=== PATIENT | male | born 1970 | race Caucasian/White ===

== ENCOUNTER 2019-06-23 14:19 | Outpatient (CLI) | payer BC, SELFPAY ==
[2019-06-23 14:37] LABS: Basophils Percent Auto 0.4 % (0.2-1.2); Eosinophils Absolute Auto 0.1 K/mm3 (0-0.3); Hematocrit 47.2 % (42.0-52.0); Hemoglobin 16.2 g/dL (14.0-18.0); Immature Granulocyte Absolute 0.02 K/mm3 (0.00-0.031); Immature Granulocyte Percent A 0.3 % (0-0.5); Lymphocytes Absolute Auto 1.86 K/mm3 (0.9-3.2); Lymphocytes Percent Auto 27.1 % (18.3-44.2); Mean Corpuscular HGB Conc 34.3 g/dl (32-36); Mean Corpuscular Hemoglobin 30.7 pg (26-34); Mean Corpuscular Volume 89.6 fl (80-100); Mean Platelet Volume 9.6 fl (7.4-10.4); Monocytes Absolute Auto 0.5 K/mm3 (0.1-0.6); Monocytes Percent Auto 7.1 % (2.6-8.5); Neutrophils Absolute Auto 4.3 K/mm3 (1.3-6.7); Neutrophils Percent Auto 63.1 % (45.5-73.1); Platelet Count Result 313 k/mm3 (150-375); Red Blood Count 5.27 M/mm3 (4.6-6.20); Red Cell Distribution Width 12.9 % (11.5-14.5); White Blood Count 6.9 K/mm3 (4.5-10.0)
[2019-06-23 15:01] LABS: Hemoglobin A1C 5.3 % (<5.7)
[2019-06-23 15:06] LABS: Alanine Aminotransferase 42 U/L (4-50); Albumin Level 4.8 g/dL (3.5-5.1); Alkaline Phosphatase 80 U/L (38-126); Aspartate Amino Transferase 36 U/L (17-59); Bilirubin,Total 0.5 mg/dL (0.2-1.3); Blood Urea Nitrogen 14 mg/dL (9-20); Calcium 9.3 mg/dL (8.4-10.2); Carbon Dioxide 26 mmol/L (22-30); Chloride 103 mmol/L (98-107); Cholesterol 172 mg/dL (0-200); Estimated Glomerular Filt Rate > 60; Glucose 87 mg/dL (75-110); HDL Direct 42 mg/dL; Potassium 4.7 mmol/L (3.4-5.0); Sodium 138 mmol/L (137-145); Triglycerides 132 mg/dL (<150)
[2019-06-23 15:21] LABS: LDL Cholesterol Direct 97 mg/dL
[2019-06-23 15:42] LABS: Prostate Specific Antigen 1.5 ng/mL (< OR = 4.0)
== END 2019-06-23 14:20 | disposition home or self-care (01) ==
PROVIDERS: PCP Internal Medicine; Visit Provider Internal Medicine
DX: R69 Illness, unspecified (principal); Z12.5 Encounter for screening for malignant neoplasm of prostate
CPT/HCPCS: 36415; 80053; 80061; 82306; 83036; 84153; 84443; 85025; G0103

== ENCOUNTER 2020-03-31 09:12 | Emergency (ER) | payer BC, SELFPAY ==
--- NOTE | ~2020-03-31 | CT_ITS ---
EXAMINATION: CT brain wo con INDICATION: Head injury COMPARISON: None TECHNIQUE: Standard unenhanced head CT. The dose-length product (DLP) was 681.00 mGy-cm. The mA was a djusted according to patient size. Iterative reconstruction technique was employed. FINDINGS: There is left periorbital soft tissue swelling and laceration. There is no intracranial hem orrhage, acute infarction, or abnormal mass lesion. The ventricles are normal. There is no abnormal m ass effect or midline shift. The swain-white matter differentiation is normal. The basal cisterns are patent. The orbits are normal. The paranasal sinuses, mastoids and calvarium are normal. IMPRESSION: 1. Left periorbital soft tissue swelling and laceration without acute intracranial abnormality. Reviewed, dictated and finalized at location A. [employer] IMPRESSION: 1. Left periorbital soft tissue swelling and laceration without acute intracran ial abnormality.
--- NOTE | ~2020-03-31 | CT_ITS ---
EXAMINATION: CT cervical spine wo con EXAM DATE: 03/31/2020 10:26 INDICATION: Fall, head injury. TECHNIQUE: Spiral CT of the cervical spine was performed without contrast. Axial images were reviewe d. Coronal and sagittal reformatted images were also reviewed. The dose-length product (DLP) for thi s examination was 517.92 mGy-cm. The exposure was tailored according to patient size (auto mA exposu re control), and iterative reconstruction (ASIR) was used as additional dose reduction technique. ere is no prior study for comparison. FINDINGS: There is no evidence of acute cervical fracture. The odontoid process is intact. Pre-den s space is normal. Prevertebral soft tissue is normal. There are no soft tissue abnormalities ident ified. There is no disc space widening or traumatic vertebral body subluxation suspected. Vertebral body and disc heights are well-maintained. Mild cervical spondylosis. A detailed level by level eval uation of spondylosis can be added as addendum if requested. IMPRESSION: 1. No acute cervical fracture. Reviewed, dictated and finalized at location B. [employer] SUPERVISOR
[2020-03-31 09:27] VITALS: BP 125/76; PULSE 103; RESP 14; TEMP 35.9; O2SAT 99
[2020-03-31] MEDS: TETANUS,DIPHTHERIA,AC PERTUSSIS ADULT (0.5 ML) BOOSTRIX IM (09:55)
--- NOTE | 2020-03-31 09:55 | ED.HEATRA ---
HPI - Head Injury General Chief complaint: Head Injury Stated complaint: fall, head injury Time Seen by Provider: 03/31/20 09:35 Source: patient Mode of arrival: ambulatory Limitations: no limitations History of Present Illness HPI Narrative: 49 years old white male presents with left forehead laceration occurred approximately at 11 PM last night. Patient was under the influence of alcohol, does not know how it happened. Patient denying other injuries. Patient denies any fever, chills, nausea, vomiting, neck pain, back pain, chest pain or abdominal pain. Last tetanus shot over 10 years ago Related Data Home Medications Medication Instructions Recorded Confirmed paroxetine HCl 20 mg tablet tablet PO 06/23/19 06/23/19 Allergies Allergy/AdvReac Type Severity Reaction Status Date / Time No Known Allergies Allergy Verified 06/23/19 13:59 Review of Systems Review of Systems: Narrative: CONSTITUTIONAL: Denies fever, chills, or sweats. EYES: Denies visual changes, redness, or discharge. ENT: Denies rhinorrhea, congestion, sore throat, or otalgia. CARDIOVASCULAR: Denies chest pain, palpitations, or edema. RESPIRATORY: Denies cough or dyspnea. GASTROINTESTINAL: Denies abdominal pain, nausea, vomiting, or diarrhea. GENITOURINARY: Denies dysuria or hematuria. SKIN: Denies rash or itching. MUSCULOSKELETAL: Denies back pain, joint pain, or myalgia. NEUROLOGIC: Denies headache, numbness, or weakness. PSYCHIATRIC: Denies anxiety or depression. [facility] Past Medical History Medical History Anxiety Family History Family History Mother Family history of obesity Family history of osteoarthritis Family history of coronary artery disease Grandparent Family history of malignant neoplasm Carcinoma of colon Father Malignant neoplasm of prostate Social History Social History Smoking status: Never smoker Alcohol intake: current Exam Narrative: Exam Narrative: General appearance: Well-developed, well-nourished Skin: Normal color, left forehead showing 6 cm deep laceration 1 cm gapping, dried blood all over the place. Head: Left forehead contusion and laceration Eyes: Clear conjunctiva ENT: Oropharynx normal, ears normal, nose normal Neck: Supple, nontender Chest and respiratory: Airway patent, no respiratory distress, no accessory muscle use Heart: Regular rate/rhythm Abdomen: Soft, nontender, no organomegaly, quiet bowel sounds Musculoskeletal: Normal range of motion, nontender back Neurologic: Alert and oriented ?3, CARDI[employer] REHAB NURSE is normal as tested, no gross motor deficit Course Course Emergency Course: Stable Reevaluation(s) Reevaluation #1: Dr. Cunha Came to the emergency room and manageD the laceration. Date: 03/31/20 Time: 11:30 Vital Signs Vital signs: Vital Signs Temperature 35.9 C L 03/31/20 09:27 Pulse Rate 103 H 03/31/20 09:27 Respiratory Rate 14 03/31/20 09:27 Blood Pressure 125/76 03/31/20 09:27 Pulse Oximetry 99 03/31/20 09:27 Temperature 35.9 C L 03/31/20 09:27 Pulse Rate 103 H 03/31/20 09:27 Respiratory Rate 14 03/31/20 09:27 Blood Pressure 125/76 03/31/20 09:27 Pulse Oximetry 99 03/31/20 09:27 MDM - Head Injury MDM Narrative Medical decision making narrative: Patient presents with closed head injury and forehead laceration, was under the influence of alcohol. Patient came to the emergency room 11-1/2-hour later CT head, CT cervical spine, a tetanus shot ordered. Further plan to follow Dr. Cunha consult ordered. Differential Diagnos
[2020-03-31] MEDS: ONDANSETRON HCL ODT 4 MG TABLET PO (11:40)
[2020-03-31 11:55] VITALS: BP 119/80; PULSE 100; RESP 12; O2SAT 99
[2020-03-31 12:45] VITALS: BP 144/87; PULSE 82; RESP 18; O2SAT 99
--- NOTE | 2020-03-31 20:06 | PM.PROC ---
Procedure Note - Detailed Date of procedure: 03/31/20 Pre-op diagnosis: fall, head injury Post-op diagnosis: same Procedure performed: 6 cm complex repair of left forehead laceration. Description of procedure: I met this patient in the ER after being called to address a laceration to his left forehead. This gentleman had sustained this injury in a fall at least 12 hours before. He apparently was intoxicated and fell at home striking his head and did not know he was bleeding until he found blood on his pillow. He has no known allergies to medication and is on just a few medications including alprazolam azithromycin paroxetine and rosuvastatin. He has never been a smoker. He requested that the forehead be repaired. I informed him that he may have some numbness from this injury later but he said he had none this time. He has some bruising around his left orbit. The laceration runs through the eyebrow running vertically towards the left side of his forehead. The site was infiltrated with 1% lidocaine with epinephrine. All dried blood was cleared with antiseptic solution. The site was carefully examined and washed with the same antiseptic solution. The configuration of the margins of this wound was evaluated. The skin edges to width of approximately 2 mm were sharply trimmed all the way around using a 15 blade. There was bevelling in different areas which had sustained differing forces in this trauma, fatty layers and muscle. Appropriate layers were reapproximated with 5 0 Vicryl the skin was reapproximated in the dermis with 5 0 Vicryl. The skin was then closed with a 5 0 running nylon. I did not see any obvious neurovascular structures. The patient is discharged with instructions in wound care and follow-up oral antibiotics and some pain medicine Surgeon: Brennan Cunha MD
== END 2020-03-31 12:47 | disposition home or self-care (01) ==
PROVIDERS: Emergency Provider Emergency Medicine; PCP Internal Medicine
DX: S01.81XA Laceration without foreign body of other part of head, initial encounter (principal); Z23 Encounter for immunization; F41.9 Anxiety disorder, unspecified; W19.XXXA Unspecified fall, initial encounter
CPT/HCPCS: 13132; 70450; 72125; 90471; 90715; 99284; A9270; J2405

== ENCOUNTER 2021-07-05 00:11 | Day surgery (SDC) | payer BC, SELFPAY ==
[2021-06-24 12:52] VITALS: BMI 34.9
--- NOTE | 2021-07-05 10:54 | WPDANESEPPF ---
Anes - Initial Pre Proc Eval Procedure: Operation Date: 07/05/21 13:00 Proposed Procedures p Esophagogastroduodenoscopy & Colonoscopy - Mitesh Cheung MD Date/Time: 07/05/21 10:54 Surgeon: Mitesh Cheung MD Pre Op Diagnosis: GERD, epigastric pain, neoplasm screening Patient Data Age: 51 Gender: M Height: 1.78 m Weight: 110.5 kg Allergies Allergy/AdvReac Type Severity Reaction Status Date / Time No Known Allergies Allergy Verified 07/05/21 11:09 Home Medications Medication Instructions Recorded Confirmed Type rosuvastatin 40 mg tablet See Rx Instructions .ROUTE 04/08/21 06/24/21 Rx .COMPLEX #90 tablet paroxetine HCl 20 mg tablet See Rx Instructions .ROUTE 05/10/21 06/24/21 Rx .COMPLEX #180 tablet Quercetin BYMOUTH 06/09/21 06/13/21 History alprazolam 0.25 mg tablet 0.25 mg PO TID PRN #90 tablet 06/09/21 06/24/21 Rx ascorbic acid (vitamin C) 1,000 mg 1 g PO DAILY 06/09/21 06/24/21 History tablet cholecalciferol (vitamin D3) 50 50 mcg PO DAILY 06/09/21 06/24/21 History mcg (2,000 unit) capsule pantoprazole 40 mg tablet,delayed 40 mg PO DAILY #90 tablet 06/09/21 06/24/21 Rx release zinc 50 mg tablet 50 mg PO DAILY 06/09/21 06/24/21 History aspirin 81 mg PO DAILY 06/24/21 06/24/21 History coQ10 (ubiquinol) 100 mg PO DAILY 06/24/21 06/24/21 History Patient hx anesthesia problems: none Family hx anesthesia problems: none Results Review: All pre-operative results and documents have been reviewed as part of the pre-operative evaluation. [facility] Past Medical History Medical History (Updated 07/04/21 @ 14:39 by Russell Morrison DO) Anxiety Anxiety with depression BMI 35.0-35.9,adult Colon cancer screening Encounter for routine adult health examination without abnormal findings Epigastric pain FHx: prostate cancer Gastroesophageal reflux disease without esophagitis Impaired glucose tolerance Pneumonia of right middle lobe due to infectious organism Prostate cancer screening Stress at work Vitamin D deficiency Family History Family History Mother Family history of obesity Family history of osteoarthritis Family history of coronary artery disease Grandparent Family history of malignant neoplasm Carcinoma of colon Father Malignant neoplasm of prostate Social History Social History Smoking status: Never smoker Alcohol intake: current Drinks per week: 12 Substance use: never Substance use type: does not use Living arrangements: alone Spiritual care concerns: No Anes - Eval Final PreProcedure Day of Procedure 07/05/21 10:54 Patient weight: obese Heart: regular rate and rhythm Lungs: clear to auscultation and normal air movement Airway: Mallampati scale class II Neurological: alert and oriented Last oral intake: >/= 8 hours ASA classification: III Emergent: no Anesthetic plan: proceed Anesthesia type and monitoring: general GIVS and standard monitoring Results Review: All pre-operative results and documents have been reviewed as part of the pre-operative evaluation. Informed Consent: The patient's anesthetic plan and its attendant risks and benefits were discussed with the patient/family/POA. Questions were solicited and answers provided to the satisfaction of the patient/family/POA.
[2021-07-05 11:10] VITALS: BP 117/76; PULSE 86; RESP 18; TEMP 36.4; O2SAT 99
--- NOTE | 2021-07-05 11:19 | WPDGICN ---
Assessment and Plan Assessment and plan (1) Epigastric pain: Code(s): R10.13 - Epigastric pain Status: Acute Assessment and Plan: Patient with epigastric pain that may represent acid reflux or dyspepsia. The history is difficult to pinpoint. Agree with trial of pantoprazole 40mg p.o. daily. An EGD will be performed to evaluate this pain which has been present for several years. Anti-reflux measures in a bland diet are also encouraged. (2) Colon cancer screening: Code(s): Z12.11 - Encounter for screening for malignant neoplasm of colon Status: Acute Assessment and Plan: Neoplasia screening colonoscopy advised because of patient's age. Further recommendations will be given after colonoscopy. GI Consult Note Consult date/time: 07/05/21 11:19 HPI: Tino Morales is a 51 year old male Presents for both colonoscopy an EGD. Patient complains of several years of epigastric discomfort. He states that his sometimes a burning nature. Not always related to diet. Sometimes while sitting still. Her lying down at night. He is uncertain if it is related to eating. He has tried Tums and antacids with inconsistent response. He did try famotidine that seemed to help to a certain degree. Over last 1 week has been on a proton pump inhibitor with no specific change in symptoms. Patient presents for EGD today to assess this discomfort more thoroughly. Patient denies any dysphagia or weight loss. Patient additionally presents for screening colonoscopy. He reports that his current weight appetite bowel movements are normal. Family history is significant for a grandparent with colon cancer. He presents today for neoplasia screening. Review of Systems Review of Systems: All systems reviewed & are unremarkable except as noted in HPI and below [facility] Past Medical History Medical History (Updated 07/04/21 @ 14:39 by Russell Morrison, ) Anxiety Anxiety with depression BMI 35.0-35.9,adult Colon cancer screening Encounter for routine adult health examination without abnormal findings Epigastric pain FHx: prostate cancer Gastroesophageal reflux disease without esophagitis Impaired glucose tolerance Pneumonia of right middle lobe due to infectious organism Prostate cancer screening Stress at work Vitamin D deficiency Family History Family History Mother Family history of obesity Family history of osteoarthritis Family history of coronary artery disease Grandparent Family history of malignant neoplasm Carcinoma of colon Father Malignant neoplasm of prostate Social History Social History Smoking status: Never smoker Alcohol intake: current Drinks per week: 12 Substance use: never Substance use type: does not use Living arrangements: alone Spiritual care concerns: No Meds Home Medications and Allergies Home Medications Medication Instructions Recorded Confirmed Type rosuvastatin 40 mg tablet See Rx Instructions .ROUTE 04/08/21 06/24/21 Rx .COMPLEX #90 tablet paroxetine HCl 20 mg tablet See Rx Instructions .ROUTE 05/10/21 06/24/21 Rx .COMPLEX #180 tablet Quercetin BYMOUTH 06/09/21 06/13/21 History alprazolam 0.25 mg tablet 0.25 mg PO TID PRN #90 tablet 06/09/21 06/24/21 Rx ascorbic acid (vitamin C) 1,000 mg 1 g PO DAILY 06/09/21 06/24/21 History tablet cholecalciferol (vitamin D3) 50 50 mcg PO DAILY 06/09/21 06/24/21 History mcg (2,000 unit) capsule pantoprazole 40 mg tablet,delayed 40 mg PO DAILY #90 tablet 06/09/21 06/24/21 Rx release zinc 50 mg tablet 50 mg PO DAILY 06/09/21 06/24/21 History aspirin 81 mg PO DAILY 06/24/21 06/24/21 History coQ10 (ubiquinol) 100 mg PO DAILY 06/24/21 06/24/21 History Allergies Allergy/AdvReac Type Severity Reaction Status Date / Time No Known Allergies Allergy Verified 07/05/21 11:09
[2021-07-05] MEDS: LACTATED RINGERS 1,000 ML 150 ML IV CONT (11:24)
--- NOTE | 2021-07-05 11:40 | SUR.OPER ---
EGD ended at 1135. Colonoscopy started at 1140.
[2021-07-05] MEDS: SIMETHICONE ORAL SUSPENSION 20 MG/0.3 ML 30 ML BOTTLE 0.6 ML IRRIGATION (11:43)
[2021-07-05 11:56] VITALS: BP 142/91; PULSE 92; RESP 25; O2SAT 99
[2021-07-05 12:06] VITALS: BP 133/91; PULSE 93; RESP 22; O2SAT 99
[2021-07-05 12:16] VITALS: BP 135/86; PULSE 71; RESP 23; O2SAT 100
== END 2021-07-05 12:28 | disposition home or self-care (01) ==
PROVIDERS: PCP Internal Medicine; Visit Provider Internal Medicine Gastroenterology
PROC: 0DJ08ZZ Inspection of Upper Intestinal Tract, Via Natural or Artificial Opening Endoscopic (ICD-10-PCS; CPT 43235; principal; 2021-07-05 13:00)
DX: Q39.4 Esophageal web (principal); Z12.11 Encounter for screening for malignant neoplasm of colon; D17.5 Benign lipomatous neoplasm of intra-abdominal organs; K64.8 Other hemorrhoids; K57.30 Diverticulosis of large intestine without perforation or abscess without bleeding; K21.9 Gastro-esophageal reflux disease without esophagitis; E55.9 Vitamin D deficiency, unspecified; F41.8 Other specified anxiety disorders; E66.9 Obesity, unspecified; Z68.35 Body mass index [BMI] 35.0-35.9, adult
CPT/HCPCS: 43450; 43239; 45385; 87081; 88305; J2704; J7120

== ENCOUNTER 2023-01-16 01:06 | Day surgery (SDC) | payer BC, SELFPAY ==
[2023-01-11 14:04] VITALS: BMI 31.1
[2023-01-16 07:25] VITALS: BP 119/70; PULSE 74; RESP 16; TEMP 35.5; O2SAT 100; BMI 30.1
[2023-01-16] MEDS: LACTATED RINGERS 1,000 ML 150 ML IV CONT (07:47)
--- NOTE | 2023-01-16 08:24 | WPDANESEPPF ---
Anes - Initial Pre Proc Eval Procedure: Operation Date: 01/16/23 08:00 Proposed Procedures p Esophagogastroduodenoscopy - Mitesh Cheung MD Date/Time: 01/16/23 08:24 Surgeon: Mitesh Cheung MD Pre Op Diagnosis: esophageal obstruction, dysphagia , GERD Patient Data Age: 52 Gender: M Height: 1.78 m Weight: 95.3 kg Last Vital Signs Temp 95.9 F L 01/16/23 07:25 Pulse 74 01/16/23 07:25 Resp 16 01/16/23 07:25 BP 119/70 01/16/23 07:25 Pulse Ox 100 01/16/23 07:25 O2 Del Method Room Air 01/16/23 07:25 Allergies Allergy/AdvReac Type Severity Reaction Status Date / Time No Known Allergies Allergy Verified 01/16/23 07:35 Home Medications Medication Instructions Recorded Confirmed Type ascorbic acid (vitamin C) 1,000 mg 1 g PO DAILY 06/09/21 01/16/23 History tablet cholecalciferol (vitamin D3) 50 50 mcg PO DAILY 06/09/21 01/16/23 History mcg (2,000 unit) capsule zinc 50 mg tablet 50 mg PO DAILY 06/09/21 01/16/23 History aspirin 81 mg capsule 81 mg PO DAILY 06/24/21 01/16/23 History coQ10 (ubiquinol) 100 mg capsule 100 mg PO DAILY 06/24/21 01/16/23 History alprazolam 0.25 mg tablet 0.25 mg PO TID PRN anxiety #90 tabs 06/12/22 01/16/23 Rx vitamin B complex (B 1 tablet PO DAILY 07/13/22 01/16/23 History Complex-Vitamin B12 tablet) paroxetine HCl 20 mg tablet See Rx Instructions .Route 12/14/22 01/16/23 Rx .COMPLEX #180 tabs famotidine 40 mg tablet (Pepcid) 40 mg PO QHS #90 tabs 01/08/23 01/16/23 Rx rosuvastatin 40 mg tablet See Rx Instructions .Route 01/08/23 01/16/23 Rx .COMPLEX #90 tabs Patient hx anesthesia problems: none Family hx anesthesia problems: none Results Review: All pre-operative results and documents have been reviewed as part of the pre-operative evaluation. [facility] Past Medical History Medical History (Updated 01/08/23 @ 09:32 by Krystle Knight CMA) Anxiety Anxiety with depression Back pain BMI 31.0-31.9,adult BMI 34.0-34.9,adult BMI 35.0-35.9,adult Colon cancer screening Congestion of right ear Encounter for preventive health examination Encounter for routine adult health examination with abnormal findings Encounter for routine adult health examination without abnormal findings Epigastric pain Esophageal stricture FHx: prostate cancer Gastroesophageal reflux disease without esophagitis Impaired glucose tolerance Pneumonia of right middle lobe due to infectious organism Prostate cancer screening Stress at work Vitamin D deficiency Family History Family History Mother Family history of obesity Family history of osteoarthritis Family history of coronary artery disease Grandparent Family history of malignant neoplasm Carcinoma of colon Father Malignant neoplasm of prostate Social History Social History Smoking status: Never smoker Second hand tobacco smoke exposure: No Alcohol intake: current Drinks per week: 12 Substance use: never Substance use type: does not use Lack of Transportation: No Lack of Food: Never True Current Housing: I Have Housing Concerned About Future Housing: No Difficulty Paying Gas/Electric Bills: No Difficulty Paying for Meds: No Currently Unemployed: No Education: Master's Degree or Higher Difficulty w/ Childcare or Family Care: No Living arrangements: with family Occupation/Education: occupation Gender identity (if verbalized by the patient): Male Spiritual care concerns: No Anes - Eval Final PreProcedure Day of Procedure 01/16/23 08:24 Patient weight: obese Heart: regular rate and rhythm Lungs: clear to auscultation Airway: Mallampati scale class II Neurological: alert and oriented Last oral intake: >/= 8 hours ASA classification: II Emergent: no Anesthetic plan: proceed Anesthesia type and monitoring: general GIVS and standard monitoring
--- NOTE | 2023-01-16 08:29 | PM.HPGS ---
History of Present Illness History of Present Illness Consent: Risks, benefits, and alternatives have been discussed and questions answered. Patient agrees to proceed with procedure. Chief complaint: epigastric pain Narrative: Tino Morales is a 52 year old male Referred by Dr. Mccabe because of esophageal obstruction . Patient complains of epigastric discomfort. 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 Suggestion of esophagitis was identified at that time because of an irregular GE junction. Patient placed on pantoprazole. Patient currently takes [id number] Pepcid. He states this helps the discomfort partially. It never goes away. Discomfort is not related to diet nor position or activity. Patient denies any difficulty swallowing. He has no chest pain. He does infrequently notice regurgitation. Family history is noncontributory. Patient no longer is taking PPI acid suppression. Patient referred back for follow-up EGD. Review of Systems Review of Systems: Review of systems noncontributory. [facility] Past Medical History Medical History (Updated 01/08/23 @ 09:32 by Krystle Knight [facility]) Anxiety Anxiety with depression Back pain BMI 31.0-31.9,adult BMI 34.0-34.9,adult BMI 35.0-35.9,adult Colon cancer screening Congestion of right ear Encounter for preventive health examination Encounter for routine adult health examination with abnormal findings Encounter for routine adult health examination without abnormal findings Epigastric pain Esophageal stricture FHx: prostate cancer Gastroesophageal reflux disease without esophagitis Impaired glucose tolerance Pneumonia of right middle lobe due to infectious organism Prostate cancer screening Stress at work Vitamin D deficiency Family History Family History Mother Family history of obesity Family history of osteoarthritis Family history of coronary artery disease Grandparent Family history of malignant neoplasm Carcinoma of colon Father Malignant neoplasm of prostate Social History Social History Smoking status: Never smoker Second hand tobacco smoke exposure: No Alcohol intake: current Drinks per week: 12 Substance use: never Substance use type: does not use Lack of Transportation: No Lack of Food: Never True Current Housing: I Have Housing Concerned About Future Housing: No Difficulty Paying Gas/Electric Bills: No Difficulty Paying for Meds: No Currently Unemployed: No Education: Master's Degree or Higher Difficulty w/ Childcare or Family Care: No Living arrangements: with family Occupation/Education: occupation Gender identity (if verbalized by the patient): Male Spiritual care concerns: No Meds Home Medications and Allergies Home Medications Medication Instructions Recorded Confirmed Type ascorbic acid (vitamin C) 1,000 mg 1 g PO DAILY 06/09/21 01/16/23 History tablet cholecalciferol (vitamin D3) 50 50 mcg PO DAILY 06/09/21 01/16/23 History mcg (2,000 unit) capsule zinc 50 mg tablet 50 mg PO DAILY 06/09/21 01/16/23 History aspirin 81 mg capsule 81 mg PO DAILY 06/24/21 01/16/23 History coQ10 (ubiquinol) 100 mg capsule 100 mg PO DAILY 06/24/21 01/16/23 History alprazolam 0.25 mg tablet 0.25 mg PO TID PRN anxiety #90 tabs 06/12/22 01/16/23 Rx vitamin B complex (B 1 tablet PO DAILY 07/13/22 01/16/23 History Complex-Vitamin B12 tablet) paroxetine HCl 20 mg tablet See Rx Instructions .Route 12/14/22 01/16/23 Rx .COMPLEX #180 tabs famotidine 40 mg tablet (Pepcid) 40 mg PO QHS #90 tabs 01/08/23 01/16/23 Rx rosuvastatin 40 mg tablet See Rx Instructions .Route 01/08/23 01/16/23 Rx .COMPLEX #90 tabs Allergies Allergy/AdvReac Type Severity Reaction Status Date / Time No Known Allergies Allergy Verified 01/16/23 07:35
[2023-01-16] MEDS: BENZOCAINE (*SP) 60 ML SPRAY CAN (HURRICAINE) 1 SPRAY MUCOUS MEM (08:38)
[2023-01-16 08:48] VITALS: BP 96/70; PULSE 56; RESP 21; O2SAT 98
[2023-01-16 08:58] VITALS: BP 118/83; PULSE 55; RESP 23; O2SAT 99
[2023-01-16 09:08] VITALS: BP 117/82; PULSE 56; RESP 22; O2SAT 99
== END 2023-01-16 09:19 | disposition home or self-care (01) ==
PROVIDERS: PCP Internal Medicine; Visit Provider Internal Medicine Gastroenterology
PROC: 0DJ08ZZ Inspection of Upper Intestinal Tract, Via Natural or Artificial Opening Endoscopic (ICD-10-PCS; CPT 43235; principal; 2023-01-16 08:00)
DX: K21.00 Gastro-esophageal reflux disease with esophagitis, without bleeding (principal); F41.8 Other specified anxiety disorders; E55.9 Vitamin D deficiency, unspecified; E66.9 Obesity, unspecified; Z68.30 Body mass index [BMI] 30.0-30.9, adult; Z79.82 Long term (current) use of aspirin; Z80.0 Family history of malignant neoplasm of digestive organs; Z80.42 Family history of malignant neoplasm of prostate
CPT/HCPCS: 43239; 87081; J1165; J7120

== ENCOUNTER 2023-03-05 14:57 | Outpatient (CLI) | payer BC, SELFPAY ==
[2023-03-05 15:50] LABS: Cholesterol 132 mg/dL (0-200); HDL Direct 33 mg/dL; Triglycerides 112 mg/dL (<150)
[2023-03-05 16:01] LABS: LDL Cholesterol Direct 79 mg/dL
[2023-03-05 16:21] LABS: Prostate Specific Antigen 1.6 ng/mL (< OR = 4.0)
== END 2023-03-05 14:58 | disposition home or self-care (01) ==
LOC: ANHLAB 14:58
PROVIDERS: PCP Internal Medicine; Visit Provider Internal Medicine
DX: Z12.5 Encounter for screening for malignant neoplasm of prostate (principal); E78.5 Hyperlipidemia, unspecified
CPT/HCPCS: 36415; 80061; 84153; G0103

== ENCOUNTER 2024-06-13 15:14 | Observation (INO) | payer OTHER, SELFPAY ==
[2024-06-13] VITALS (22 sets, daily range): BP systolic 98–152; BP diastolic 49–83; PULSE 101–128; RESP 12–20; TEMP 37.1–39.4; O2SAT 95–100; BMI 28.7
--- NOTE | ~2024-06-13 | US_ITS ---
EXAM: ABDOMEN ULTRASOUND HISTORY: RUQ PAIN COMPARISON: Reference is made to a noncontrast enhanced CT examination of the abdomen and pelvis date d 06/13/2024 which was without right upper quadrant pathology. FINDINGS: LIVER: Abnormal focus of increased echogenicity within the right lobe of the liver, presumably segmen t 5, without a definitive finding on the noncontrast enhanced CT for which contrast enhanced MRI is r ecommended for further evaluation. This abnormality measures 12 x 12 x 14 mm, and is without internal vascularity. The remainder of the liver is unremarkable in echogenicity and size. GALLBLADDER: No stones are identified within the gallbladder, which is otherwise unremarkable. Trace gallbladder wall thickening likely artifactual, without pericholecystic fluid. BILE DUCTS: Common bile duct measures 3.5mm. PANCREAS: Limited evaluation of the pancreas secondary to overlying bowel gas IMPRESSION: Indeterminate focus within segment 5/6 of the liver, which may represent an atypical hemangioma (with lack of demonstrable vascularity), however, nonemergent follow-up with contrast-enhanced MRI of the liver (with liver mass protocol) is recommended to exclude a hyperechoic malignant lesion (such as mu cinous colorectal carcinoma, melanoma, carcinoid, or primarily hepatocellular carcinoma). Reviewed, dictated and finalized at location A. IMPRESSION: Indeterminate focus within segment 5/6 of the liver, which may represent an aty pical hemangioma (with lack of demonstrable vascularity), however, nonemergent follow-up with contrast-enhanced MRI of the liver (with liver mass protocol) is recommended to exclude a hyperechoic malignant lesion (such as mucinous colore ctal carcinoma, melanoma, carcinoid, or primarily hepatocellular carcinoma).
--- NOTE | ~2024-06-13 | CT_ITS ---
CT abdomen pelvis wo con Ordering provider: Larry Swan MD History: 54 years Male with . hematuria . Comparison: None. Technique: CT abdomen and pelvis without IV and without oral contrast. Automated exposure control and iterative reconstruction technique were employed. The dose-length product was 235.15 mGy-cm. Findings: VISUALIZED LOWER CHEST: Normal. UPPER ABDOMINAL ORGANS: Liver: Normal. Gallbladder: Normal. Spleen: Normal. Stomach/duodenum: Normal. Pancreas: Normal. Adrenals: Normal. Kidneys: Normal. PELVIC ORGANS: The bladder shows thickening wall suggestive of cystitis. Further evaluation advised. BOWEL AND MESENTERY: Colon: No evidence of diverticulitis.. Normal appendix. Small Bowel: Normal. No obstruction. Peritoneum/mesentery: No free air or free fluid. No mesenteric lymphadenopathy. RETROPERITONEUM: Normal aorta. No retroperitoneal lymphadenopathy. MUSCULOSKELETAL: Superficial soft tissues: The superficial soft tissues are normal. Bones: Normal spine. IMPRESSION: 1. Thickened wall of the urinary bladder. Cystitis is highly suggestive. Further evaluation advised. 2. No evidence of appendicitis, diverticulitis or intestinal obstruction. Reviewed, dictated and finalized at location A. IMPRESSION: 1. Thickened wall of the urinary bladder. Cystitis is highly suggestive. Furth er evaluation advised. 2. No evidence of appendicitis, diverticulitis or intestinal obstruction.
--- OUTSIDE RECORDS SUMMARY | 2024-06-13 15:17 | XMS_ITS | Referral Summary ---
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[employer] Telemedicine [facility] Virtual Care [address] [place] [phone] Adore Coppola NP Other hyperlipidemia (Primary Dx); Moderate episode of recurrent major depressive disorder (HCC) 03/16/2024 Patient Self-Triage [facility] HealthCare/ Physicians [facility] [place] [address] Mychart, Generic Provider from Last 3 Months Allergies No known active allergies Medications PARoxetine (PAXIL) 10 mg tablet Take 1 tablet (10 mg total) by mouth every morning 30 tablet 1 03/21/2024 Active rosuvastatin (CRESTOR) 10 mg tablet Take 1 tablet (10 mg total) by mouth daily 30 tablet 1 03/21/[address] (PROTONIX) 40 mg EC tablet Take 1 tablet (40 mg total) by mouth every morning 05/06/2024 Active ezetimibe (ZETIA) 10 mg tablet Take 1 tablet (10 mg total) by mouth daily 05/06/2024 Active Active Problems Problem Noted Date Diagnosed Date Recurrent major depression 03/21/2024 Assessment & Plan (03/21/2024 6:18 PM ASSEMBLER [employer]): Paxil refilled with 1 refill. Patient has a new patient appointment mid April. Other hyperlipidemia 03/21/2024 Assessment & Plan (03/21/2024 6:18 PM ASSEMBLER [employer]): Will refill crestor at this time. New patient appointment mid April. Social History Tobacco Use Types Packs/Day Years Used Date Smoking Tobacco: Never Assessed Sex and Gender Information Value Date Recorded Sex Assigned at Not on file Legal Sex Male 12:50 AM ASSEMBLER [employer] Gender Identity Male 03/16/2024 11:49 AM [employer]SEM[employer] Sexual Orientation Straight 03/16/2024 11 :49 AM ASSEMBLER [employer] Last Filed Vital Signs Vital Sign Reading Time Taken Comments Blood Pressure 104/73 06/13/2024 2:45 PM CDT Pulse 120 06/13/2024 2:45 PM CDT Temperature 37.4 C (99.3 F) 06/13/2024 2:45 PM CDT Respiratory Rate 26 06/13/2024 2:45 PM CDT Oxygen Saturation 99% 06/13/2024 2:45 PM CDT Inhaled Oxygen Concentration - - Weight 92.9 kg (204 lb 12.8 oz) 06/01/2023 5:58 PM CDT Height 177.8 cm (5' 10 ) 06/01/2023 5:58 PM CDT Body Mass Index 29.39 06/01/2023 5:58 PM CDT Plan of Treatment Not on file Procedures Procedure Name Priority Date/Time Associated Diagnosis Comments POCT RAPID STREP Routine 06/13/2024 2:56 PM CDT Sore throat POC INFLUENZA A/B, COVID-19 ANTIGEN Routine 06/13/2024 2:56 PM CDT Sore throat POCT URINALYSIS DIPSTICK Routine 06/13/2024 2:44 PM CDT Hematuria, unspecified type from Last 3 Months Results * POC Influenza A/B, COVID-19 antigen (06/13/2024 2:56 PM CDT) Influenza A Ag, POC Negative Negative [facility] Influenza B Ag, POC Negative Negative [facility] COVID-19 Ag POC Presumptive Negative Presumptive Negative, Invalid [facility] Nasal 06/13/2024 2:56 PM CDT Eri Phillips NP POINT OF CARE TEST ORDERABLES F inal Result [facility] [address] [place] [address] * POCT rapid strep A (06/13/2024 2:56 PM CDT) Rapid Strep A, POC Negative Negative Swab 06/13/2024 2:56 PM CDT Eri Phillips NP POINT OF CARE TEST ORDERABLES F inal Result * (ABNORMAL) POCT urinalysis dipstick (06/13/2024 2:44 PM CDT) Color, Urine, POC Red Clarity, ur, POC Cloudy(A) Clear Glucose, ur, POC Negative Negative MG/DL Bilirubin, ur, POC Moderate Negative, Small, Moderate, Large Ketones, ur, POC 15.(A) Negative Specific [place], POC 1.025 1.003 - 1.030 Blood, ur, POC Large(A) Negative pH, ur, POC 5.5 5.0 - 8.0 Protein, ur, POC 300.(A) Negative Urobilinogen, urine, POC 1.0 0.2 - 1.0 mg/dL Nitrite, ur, POC Positive(A) Negative Leukocytes, ur, POC Large(A) Negative Lot Number [id number] Urine 06/13/2024 2:44 PM CDT Aimee Olguin NP POINT OF CARE TEST ORDERAB LES Final Result from Last 3 Months Insurance [facility] [employer] [facility] HMO/PPO Address: [facility] [address] [place] [address] Care Teams Hydrochloric Area Supervisor Relationship Specialty Start Date End Date Unknown, Notinfile PCP - General 06/01/23
--- OUTSIDE RECORDS SUMMARY | 2024-06-13 15:17 | XMS_ITS | Encounter Summary ---
Author Organization [facility] Healthcare Address [address] [place] [address] Care Team Providers Care Commercial Credit Specialist Name Role Phone Unknown, Notinfile Primary Care Provider Unavail able Reason for Visit * Reason Comments Urinary Symptom Sore Throat Encounter Details Date Type Department Care Team (Late st Contact Info) Description 06/13/2024 3:00 PM CDT Office Visit [facility] Medical Group Convenient Care at [address] [phone] Eri Phillips, SEBASTIEN [address] [facility] [address] [place] [address] Hematuria, unspecified type (Primary Dx); Sore throat; Tachycardia; Lightheadedness; Urinary frequency Social History Tobacco Use Types Packs/Day Years Used Date Smoking Tobacco: Never Assessed Sex and Gender Information Value Date Recorded Sex Assigned at Not on file Legal Sex Male 12:50 AM ACCOUNTS PAYABLE OR RECEIVABLE CLERK Gender Identity Male 03/16/2024 11:49 AM ACCOUNTS PAYABLE OR RECEIVABLE CLERK Sexual Orientation Straight 03/16/2024 11 :49 AM ACCOUNTS PAYABLE OR RECEIVABLE CLERK documented as of this encounter Last Filed Vital Signs Vital Sign Reading Time Taken Comments Blood Pressure 104/73 06/13/2024 2:45 PM CDT Pulse 120 06/13/2024 2:45 PM CDT Temperature 37.4 C (99.3 F) 06/13/2024 2:45 PM CDT Respiratory Rate 26 06/13/2024 2:45 PM CDT Oxygen Saturation 99% 06/13/2024 2:45 PM CDT Inhaled Oxygen Concentration - - Weight - - Height - - Body Mass Index - - documented in this encounter Plan of Treatment Scheduled Orders Name Type Priority Associated Diagnoses Orde r Schedule Urine culture Urine, clean voided Microbiology Routine Hematuria, unspecified type Expected: 06/13/2024, Expires: 06/13/2025 documented as of this encounter Procedures Procedure Name Priority Date/Time Associated Diagnosis Comments POC INFLUENZA A/B, COVID-19 ANTIGEN Routine 06/13/2024 2:56 PM CDT Sore throat POCT RAPID STREP Routine 06/13/2024 2:56 PM CDT Sore throat POCT URINALYSIS DIPSTICK Routine 06/13/2024 2:44 PM CDT Hematuria, unspecified type documented in this encounter Results * POCT rapid strep A (06/13/2024 2:56 PM CDT) Rapid Strep A, POC Negative Negative Swab 06/13/2024 2:56 PM CDT Eri Phillips NP POINT OF CARE TEST ORDERABLES F inal Result * POC Influenza A/B, COVID-19 antigen (06/13/2024 2:56 PM CDT) Influenza A Ag, POC Negative Negative [facility] Influenza B Ag, POC Negative Negative [facility] COVID-19 Ag POC Presumptive Negative Presumptive Negative, Invalid [facility] Nasal 06/13/2024 2:56 PM CDT Eri Phillips NP POINT OF CARE TEST ORDERABLES F inal Result [facility] [address] [place] [address] * (ABNORMAL) POCT urinalysis dipstick (06/13/2024 2:44 PM CDT) Color, Urine, POC Red Clarity, ur, POC Cloudy(A) Clear Glucose, ur, POC Negative Negative MG/DL Bilirubin, ur, POC Moderate Negative, Small, Moderate, Large Ketones, ur, POC 15.(A) Negative Specific [place], POC 1.025 1.003 - 1.030 Blood, ur, POC Large(A) Negative pH, ur, POC 5.5 5.0 - 8.0 Protein, ur, POC 300.(A) Negative Urobilinogen, urine, POC 1.0 0.2 - 1.0 mg/dL Nitrite, ur, POC Positive(A) Negative Leukocytes, ur, POC Large(A) Negative Lot Number [id number] Urine 06/13/2024 2:44 PM CDT Aimee Olguin NP POINT OF CARE TEST ORDERAB LES Final Result documented in this encounter Visit Diagnoses Diagnosis Hematuria, unspecified type- Primary Sore throat Acute pharyngitis Tachycardia Unspecified tachycardia Lightheadedness Dizziness and giddiness Urinary frequency documented in this encounter Historical Medications * This list may reflect changes made after this encounter. ezetimibe (ZETIA) 10 mg tablet Take 1 tablet (10 mg total) by mouth daily 05/06/[address] (PROTONIX) 40 mg EC tablet Take 1 tablet (40 mg total) by mouth every morning 05/06/2024 added in this encounter Care Teams Commercial Credit Specialist Relationship Specialty Start Date End Date Unknown, Notinfile PCP - General 06/01/23 documented as of this encounter
--- OUTSIDE RECORDS SUMMARY | 2024-06-13 15:17 | XMS_ITS | Clinical Summary ---
Author Organization [facility] Address [facility] [place] [address] Care Team Providers Care Cps Team Lead Name Role Phone Micheal Mccabe MD Primary Care Provider [phone] Social History Tobacco Use Types Packs/Day Years Used Date Smoking Tobacco: Never Assessed Sex and Gender Information Value Date Recorded Sex Assigned at Not on file Legal Sex Male 5:10 PM CDT Gender Identity Not on file Sexual Orientation Not on file Plan of Treatment Health Maintenance Due Date Last Done Comments Colorectal Cancer Screening Colonoscopy (10 Years) 1968 Annual Physical 1971 Hepatitis C 1986 Hepatitis B Vaccines (1 of 3 - 19+ 3-dose series) 1987 Zoster Vaccines (1 of 2) 2018 COVID-19 Vaccine (3 - 2023-2 5 season) 2023 11/15/2020, 10/20/2020 Influenza Adult (#1) 2023 02/05/2022, 02/19/2018 DTaP, Tdap and Td Vaccines ( 2 - Td or Tdap) 03/31/2030 03/31/2020 Meningococcal B Vaccine Aged Out No l onger eligible based on patient's age to complete this topic Meningococcal Vaccine Aged Out No eliseo brandie eligible based on patient's age to complete this topic Pneumococcal Vaccine: Pediatrics (0 to 5 Years) and At-Risk Patients (6 to 64 Years) Aged Out No longer eligible b ased on patient's age to complete this topic RSV Immunizations Under 20 Months Aged Out No longer eligible b ased on patient's age to complete this topic Insurance [facility] Care Teams Cps Team Lead Relationship Specialty Start Date End Date Micheal Mccabe MD [address] - [facility] [address] [place] [id number] PCP - General INTERNAL MEDICINE 03/06/23
--- OUTSIDE RECORDS SUMMARY | 2024-06-13 15:17 | XMS_ITS | Clinical Summary ---
Author Organization [facility] [address] [place] Address [address] [place] [phone] Care Team Providers Care Division Controller Name Role Phone Unknown, Notinfile Primary Care Provider Unavail able Allergies No known active allergies Medications PARoxetine [...] 03/21/2024 Assessment & Plan (03/21/2024 6:18 PM CAREER DEVELOPMENT SPECIALIST): Paxil refilled with 1 refill. Patient has a new patient appointment mid April. Other hyperlipidemia 03/21/2024 Assessment & Plan (03/21/2024 6:18 PM CAREER DEVELOPMENT SPECIALIST): Will refill crestor at this time. New patient appointment mid April. Encounters Date Type Department Care Team Description 06/13/2024 3:00 PM CDT Office Visit [facility] Medical Group [facility] Care at [address] [phone] Eri Phillips NP Hematuria, unspecified type (Primary Dx); Sore throat; Tachycardia; Lightheadedness; Urinary frequency 03/21/2024 6:30 PM CAREER DEVELOPMENT SPECIALIST Telemedicine [facility] Medical Group Virtual Care [address] [place] [phone] Adore Coppola NP Other hyperlipidemia (Primary Dx); Moderate episode of recurrent major depressive disorder (HCC) 03/16/2024 Patient Self-Triage [facility] HealthCare/ Physicians [facility] [place] [address] Mychart, Generic Provider from Last 3 Months Social History Tobacco Use Types Packs/Day Years Used Date Smoking Tobacco: Never Assessed Sex and Gender Information Value Date Recorded Sex Assigned at Not on file Legal Sex Male 12:50 AM CAREER DEVELOPMENT SPECIALIST Gender Identity Male 03/16/2024 11:49 AM CAREER DEVELOPMENT SPECIALIST Sexual Orientation Straight 03/16/2024 11 :49 AM CAREER DEVELOPMENT SPECIALIST Obstetrics History Last Filed Vital Signs Vital Sign Reading [...] 06/01/2023 5:58 PM CDT Plan of Treatment Health Maintenance Due Date Last Done Comments Colon Cancer Screening-Colonoscopy 1968 Depression Screening 1968 Hepatitis C Screening 1968 Prostate Cancer Screening-PSA 1968 Hepatitis B Screening 1986 Regular Well Visit/Exam 18-64 1986 Zoster Vaccine (1 of 2) 2018 Covid-19 Vaccine (2023-2 5 season) 2023 11/15/2020, 10/20/2020 Influenza Vaccine (#1) 2023 2, 02/19/2018 DTaP/Tdap/Td Vaccine (2 - Td or Tdap) 03/31/2030 03/31/2020 Pneumococcal vaccine <65 Aged Out No longer eligible based on patient's age to complete this topic Procedures Procedure Name Priority Date/Time Associated Diagnosis Comments POCT RAPID STREP Routine 06/13/2024 2:56 PM CDT Sore throat POC INFLUENZA A/B, COVID-19 ANTIGEN Routine 06/13/2024 2:56 PM CDT Sore throat POCT URINALYSIS DIPSTICK Routine 06/13/2024 2:44 PM CDT Hematuria, unspecified type from Last 3 Months Results * POC Influenza A/B, COVID-19 antigen (06/13/2024 2:56 PM CDT) Influenza A Ag, POC Negative Negative [facility] Influenza B Ag, POC Negative Negative [facility] COVID-19 Ag POC Presumptive Negative Presumptive Negative, Invalid [facility] Nasal 06/13/2024 2:56 PM CDT Eri Phillips NP POINT OF CARE TEST ORDERABLES F inal Result [facility] [address] [place] [address] * POCT rapid strep A (06/13/2024 2:56 PM CDT) Rapid Strep A, POC Negative Negative Swab 06/13/2024 2:56 PM CDT Eri Phillips FINANCIAL MANAGEMENT ANALYST POINT OF CARE TEST ORDERABLES F inal Result * (ABNORMAL) POCT urinalysis dipstick (06/13/2024 2:44 PM CDT) Color, Urine, POC Red Clarity, ur, POC Cloudy(A) Clear Glucose, ur, POC Negative Negative MG/DL Bilirubin, ur, POC Moderate Negative, Small, Moderate, Large Ketones, ur, POC 15.(A) Negative Specific [place], POC 1.025 1.003 - 1.030 Blood, ur, POC Large(A) Negative pH, ur, POC 5.5 5.0 - 8.0 Protein, ur, POC 300.(A) Negative Urobilinogen, urine, POC 1.0 0.2 - 1.0 mg/dL Nitrite, ur, POC Positive(A) Negative Leukocytes, ur, POC Large(A) Negative Lot Number [id number] Urine 06/13/2024 2:44 PM CDT Aimee Olguin NP POINT OF CARE TEST ORDERAB LES Final Result from Last 3 Months Insurance [employer] Care Teams Division Controller Relationship Specialty Start Date End Date Unknown, Notinfile PCP - General 06/01/23
[2024-06-13 16:27] LABS: Basophils Percent Auto 0.2 % (0.2-1.2); Eosinophils Percent Auto 0.2 % (0-4.4); Hematocrit 44.1 % (42.0-52.0); Hemoglobin 15.4 g/dL (14.0-18.0); Immature Granulocyte Absolute 0.02 K/mm3 (0.00-0.031); Immature Granulocyte Percent A 0.2 % (0-0.5); Lymphocytes Absolute Auto 0.54 K/mm3 (0.9-3.2); Mean Corpuscular HGB Conc 34.9 g/dl (32-36); Mean Corpuscular Hemoglobin 30.7 pg (26-34); Mean Platelet Volume 9.2 fl (7.4-10.4); Monocytes Absolute Auto 0.7 K/mm3 (0.1-0.6); Monocytes Percent Auto 6.4 % (2.6-8.5); Neutrophils Absolute Auto 9.4 K/mm3 (1.3-6.7); Platelet Count Result 226 k/mm3 (150-375); Red Blood Count 5.01 M/mm3 (4.6-6.20); Red Cell Distribution Width 12.8 % (11.5-14.5); White Blood Count 10.7 K/mm3 (4.5-10.0)
[2024-06-13 16:41] LABS: Alanine Aminotransferase 42 U/L (6-50); Albumin Level 4.9 g/dL (3.5-5.1); Alkaline Phosphatase 63 U/L (38-126); Anion Gap 14 mmol/L (4-12); Aspartate Amino Transferase 22 U/L (17-59); Bilirubin,Total 0.4 mg/dL (0.2-1.3); Blood Urea Nitrogen 22 mg/dL (9-20); Calcium 9.4 mg/dL (8.4-10.2); Carbon Dioxide 24 mmol/L (22-30); Chloride 102 mmol/L (98-107); Estimated CRCL calculation 82 ml/min; Estimated Glomerular Filt Rate > 60; Glucose 95 mg/dL (65-110); Potassium 4.2 mmol/L (3.4-5.0); Sodium 140 mmol/L (137-145)
[2024-06-13] MEDS: SODIUM CHLORIDE 0.9% IV 1,000 ML 999 ML IV CONT (16:50)
[2024-06-13 17:00] LABS: Platelet Estimate Adequate (Adequate)
[2024-06-13 17:01] LABS: Schistocytes None Seen
[2024-06-13 17:18] LABS: Bacteria Urine 4+ /hpf; Need Manual Microscopic Reviewed; Non Pathogenic Casts 0-2; RBC Urine >100 /hpf (0-2); Squamous Epithelial Cell Urine Occasional /hpf (Few); WBC Urine >100 /hpf (0-3)
[2024-06-13 17:19] LABS: Add Urine Microscopic? YES; Appearance Urine Turbid (Clear); Bilirubin Urine 1+ (Negative); Blood Urine 2+ (Negative); Glucose Urine UA Negative (Negative); Ketones Urine Trace mg/dL (Negative); Leukocyte Esterase Ur 3+ LEU/UL (Negative); Nitrate Urine Positive (Negative); Protein Urine 2+ mg/dL (Negative); Specific Grav Ur 1.019 (1.001-1.035); Urobilinogen Urine 0.2 mg/dL (<2.0); pH Urine 5.5 (5.0-9.0)
[2024-06-13 17:21] LABS: Color Urine Brown (Yellow)
--- NOTE | 2024-06-13 18:23 | ED_ITS ---
HPI - General Adult General Chief complaint: Urogenital-Male <Larry Swan MD - Last Filed: 06/13/24 18:59> Stated complaint: blood in urine <Larry Swan MD - Last Filed: 06/13/24 18:59> Time Seen by Provider: 06/13/24 16:26 <Larry Swan MD - Last Filed: 06/13/24 18:59> History of Present Illness HPI narrative: 54-year-old with a history of hyperlipidemia here with the complaints of blood in the urine since this afternoon patient states that he started having pain in his back since yesterday however this afternoon the pain got worse to no previous history of kidney stones the traction. states that he is on Keto diet. <Larry Swan MD - Last Filed: 06/13/24 18:59> Related Data Home medications: Home Medications ?Medication ?Instructions ?Recorded ?Confirmed ?Last Taken ?Type ascorbic acid (vitamin C) 1,000 mg 1 g PO DAILY 06/09/21 05/06/24 07/03/21 History tablet cholecalciferol (vitamin D3) 50 50 mcg PO DAILY 06/09/21 05/06/24 07/03/21 History mcg (2,000 unit) capsule zinc 50 mg tablet 50 mg PO DAILY 06/09/21 05/06/24 07/03/21 History vitamin B complex (B 1 tablet PO DAILY 07/13/22 05/06/24 Unknown History Complex-Vitamin B12 tablet) <Larry Swan MD - Last Filed: 06/13/24 18:59> Allergies/adverse reactions: Allergies Allergy/AdvReac Type Severity Reaction Status Date / Time No Known Allergies Allergy Verified 06/13/24 15:15 <Larry Swan MD - Last Filed: 06/13/24 18:59> Review of Systems 2 Review of Systems: All systems reviewed & are unremarkable except as noted in HPI and below <Larry Swan MD - Last Filed: 06/13/24 18:59> Constitutional: Constitutional: Reports no additional constitutional complaints <Larry Swan MD - Last Filed: 06/13/24 18:59> Eyes: Eyes: Reports no additional eye complaints <Larry Swan MD - Last Filed: 06/13/24 18:59> ENT: Reports system reviewed and no additional complaints, except as documented <Larry Swan MD - Last Filed: 06/13/24 18:59> Cardiovascular: Cardiovascular: Reports no additional cardiovascular complaints <Larry Swan MD - Last Filed: 06/13/24 18:59> Respiratory: Respiratory: Reports no additional respiratory complaints < Larry Swan MD - Last Filed: 06/13/24 18:59> Gastrointestinal: Gastrointestinal: Reports as per HPI <Larry Swan MD - Last Filed: 06/13/24 18:59> Genitourinary: Genitourinary: Reports as per HPI <Larry Swan MD - Last Filed: 06/13/24 18:59> Musculoskeletal: Musculoskeletal: Reports no additional musculoskeletal complaints <Larry Swan MD - Last Filed: 06/13/24 18:59> Integumentary/Breasts: Skin/Breast: Reports system reviewed and no additional complaints, except as docu <Larry Swan MD - Last Filed: 06/13/24 18:59> Neurologic: Reports system reviewed and no additional complaints, except as documented <Larry Swan MD - Last Filed: 06/13/24 18:59> PMFSH Past Medical History Medical History: Medical History Cough BMI 31.0-31.9,adult Back pain Encounter for routine adult health examination with abnormal findings Congestion of right ear Esophageal stricture BMI 34.0-34.9,adult Encounter for preventive health examination Anxiety Epigastric pain Anxiety with depression Encounter for routine adult health examination without abnormal findings BMI 35.0-35.9,adult Colon cancer screening FHx: prostate cancer Gastroesophageal reflux disease without esophagitis Impaired glucose tolerance Pneumonia of right middle lobe due to infectious organism Prostate cancer screening Stress at work Vitamin D deficiency <Larry Swan MD - Last Filed: 06/13/24 18:59> Family History Family History: Family History Mother Family history of obesity Family history of osteoarthritis Family history of coronary artery disease Grandparent Family history of malignant neoplasm Carcinoma of colon Father Malignant neoplasm of prostate <Larry Swan MD - Last Filed: 06/13/24 18:59> Social History Social History: Social History Smoking status: Never smoker Second hand tobacco smoke exposure: No Alcohol intake: current Drinks per week: 12 Substance use: never Substance use type: does not use Lack of Transportation: No Lack of Food: Never True Current Housing: I Have Housing Concerned About Future Housing: No Difficulty Paying Gas/Electric Bills: No Difficulty Paying for Meds: No Currently Unemployed: No Education: Master's Degree or Higher Difficulty w/ Childcare or Family Care: No Living arrangements: with family Occupation/Education: occupation Gender identity (if verbalized by the patient): Male Spiritual care concerns: No <Larry Swan MD - Last Filed: 06/13/24 18:59> Exam 2 Narrative: GENERAL: Well-appearing, well-nourished, and in no acute distress. HEAD: Normocephalic, atraumatic. EYES: PERRLA and EOMI.. NECK: Supple. CHEST: Clear to auscultation. No respiratory distress. HEART: Regular rate and rhythm. No murmur heard. Normal peripheral pulses. ABDOMEN: Soft, nontender, nondistended, normal active bowel sounds. EXTREMITIES: Normal range of motion. No edema. SKIN: Warm, dry, no rash. NEURO: No focal deficits. Alert and oriented x3. PSYCH: Normal mood and affect. <Larry Swan MD - Last Filed: 06/13/24 18:59> Course Course Emergency Course: Patient spiked a fever of 103, did give him Tylenol will obtain blood cultures and start him on Rocephin. <Larry Swan MD - Last Filed: 06/13/24 18:59> Patient spiked a fever of 103, did give him Tylenol will obtain blood cultures and start him on Rocephin. TYRONE: Patient signed out pending response to treatment. My assessment patient is still tachycardic in the 130s. He is febrile at 103F. Given Toradol and a 30 cc/kilogram bolus. Patient will be admitted for sepsis due to UTI. <Curtis Soriano MD - Last Filed: 06/13/24 20:33> Vital Signs Vital signs: Vital Signs Temperature 99.7 F H 06/13/24 15:16 Pulse Rate 115 H 06/13/24 15:16 Respiratory Rate 18 06/13/24 15:16 Blood Pressure 121/67 06/13/24 15:16 Pulse Oximetry 100 06/13/24 15:16 Oxygen Delivery Room Air 06/13/24 15:16 Temperature 103 F H 06/13/24 19:45 Pulse Rate 119 H 06/13/24 19:31 Respiratory Rate 13 06/13/24 19:18 Blood Pressure 152/54 H 06/13/24 19:31 Pulse Oximetry 99 06/13/24 19:31 Oxygen Delivery Room Air 06/13/24 15:16 <Larry Swan MD - Last Filed: 06/13/24 18:59> Vital Signs Temperature 99.7 F H 06/13/24 15:16 Pulse Rate 115 H 06/13/24 15:16 Respiratory Rate 18 06/13/24 15:16 Blood Pressure 121/67 06/13/24 15:16 Pulse Oximetry 100 06/13/24 15:16 Oxygen Delivery Room Air 06/13/24 15:16 Temperature 103 F H 06/13/24 19:45 Pulse Rate 119 H 06/13/24 19:31 Respiratory Rate 13 06/13/24 19:18 Blood Pressure 152/54 H 06/13/24 19:31 Pulse Oximetry 99 06/13/24 19:31 Oxygen Delivery Room Air 06/13/24 15:16 <Curtis Soriano MD - Last Filed: 06/13/24 20:33> Medical Decision Making Vital Signs Vital Signs: Vital Signs Temperature 99.7 F H 06/13/24 15:16 Pulse Rate 115 H 06/13/24 15:16 Respiratory Rate 18 06/13/24 15:16 Blood Pressure 121/67 06/13/24 15:16 Pulse Oximetry 100 06/13/24 15:16 Oxygen Delivery Room Air 06/13/24 15:16 Temperature 103 F H 06/13/24 19:45 Pulse Rate 119 H 06/13/24 19:31 Respiratory Rate 13 06/13/24 19:18 Blood Pressure 152/54 H 06/13/24 19:31 Pulse Oximetry 99 06/13/24 19:31 Oxygen Delivery Room Air 06/13/24 15:16 <Larry Swan MD - Last Filed: 06/13/24 18:59> Vital Signs Temperature 99.7 F H 06/13/24 15:16 Pulse Rate 115 H 06/13/24 15:16 Respiratory Rate 18 06/13/24 15:16 Blood Pressure 121/67 06/13/24 15:16 Pulse Oximetry 100 06/13/24 15:16 Oxygen Delivery Room Air 06/13/24 15:16 Temperature 103 F H 06/13/24 19:45 Pulse Rate 119 H 06/13/24 19:31 Respiratory Rate 13 06/13/24 19:18 Blood Pressure 152/54 H 06/13/24 19:31 Pulse Oximetry 99 06/13/24 19:31 Oxygen Delivery Room Air 06/13/24 15:16 <Curtis Soriano MD - Last Filed: 06/13/24 20:33> Lab Data Lab results reviewed: Yes I reviewed the patient's lab results. <Larry Swan MD - Last Filed: 06/13/24 18:59> Result diagrams: 06/13/24 16:21 06/13/24 16:21 <Larry Swan MD - Last Filed: 06/13/24 18:59> Labs: Lab Results 06/13/24 Range/Units 16:21 WBC 10.7 H (4.5-10.0) K/mm3 RBC 5.01 (4.6-6.20) M/mm3 Hgb 15.4 (14.0-18.0) g/dL Hct 44.1 (42.0-52.0) % MCV 88.0 (80-100) fl MCH 30.7 (26-34) pg MCHC 34.9 (32-36) g/dl RDW 12.8 (11.5-14.5) % Plt Count 226 (150-375) k/mm3 MPV 9.2 (7.4-10.4) fl Immature Gran % (Auto) 0.2 (0-0.5) % Neut % (Auto) 88.0 H (45.5-73.1) % Lymph % (Auto) 5.0 L (18.3-44.2) % [place] % (Auto) 6.4 (2.6-8.5) % Eos % (Auto) 0.2 (0-4.4) % Baso % (Auto) 0.2 (0.2-1.2) % Lymph # (Auto) 0.54 L (0.9-3.2) K/mm3 [place] # (Auto) 0.7 H (0.1-0.6) K/mm3 Eos # (Auto) 0.0 (0-0.3) K/mm3 Baso # (Auto) 0.0 (0.0-0.1) K/mm3 Abs Immat Gran (auto) 0.02 (0.00-0.031) K/mm3 Absolute Neuts (auto) 9.4 H (1.3-6.7) K/mm3 Absolute Nucleated RBC 0.000 (0.0-0.012) K/mm3 Band Neutrophils % Not Reportable Nucleated RBC % 0.0 (0.0-0.2) % Platelet Estimate Adequate (Adequate) Schistocytes None seen Sodium 140 (137-145) mmol/L Potassium 4.2 (3.4-5.0) mmol/L Chloride 102 (98-107) mmol/L Carbon Dioxide 24 (22-30) mmol/L Anion Gap 14 H (4-12) mmol/L BUN 22 H (9-20) mg/dL Creatinine 0.91 (0.7-1.3) mg/dL Estim Creat Clear Calc 82 ml/min Estimated GFR > 60 (59 - ) Glucose 95 (65-110) mg/dL Calcium 9.4 (8.4-10.2) mg/dL Total Bilirubin 0.4 (0.2-1.3) mg/dL AST 22 (17-59) U/L ALT 42 (6-50) U/L Alkaline Phosphatase 63 (38-126) U/L Total Protein 8.0 (6.3-8.2) g/dL Albumin 4.9 (3.5-5.1) g/dL Urine Color Brown H (Yellow) Urine Appearance Turbid H (Clear) Urine pH 5.5 (5.0-9.0) Ur Specific [place] 1.019 (1.001-1.035) Urine Protein 2+ H (Negative) mg/dL Urine Glucose (UA) Negative (Negative) mg/dL Urine Ketones Trace H (Negative) mg/dL Ur Blood (Man) 2+ H (Negative) Urine Nitrate Positive H (Negative) Urine Bilirubin 1+ H (Negative) Urine Urobilinogen 0.2 (<2.0) mg/dL Add Ur Microanalysis Reviewed Leukocyte Esterase Rfl 3+ H (Negative) CHUCK/UL Urine RBC >100 H (0-2) /hpf Urine WBC >100 H (0-3) /hpf Ur Squamous Epith Cells Occasional (Few) /hpf Urine Bacteria 4+ H /hpf Urine Casts 0-2 <Larry Swan MD - Last Filed: 06/13/24 18:59> Lab Results 06/13/24 Range/Units 16:21 WBC 10.7 H (4.5-10.0) K/mm3 RBC 5.01 (4.6-6.20) M/mm3 Hgb 15.4 (14.0-18.0) g/dL Hct 44.1 (42.0-52.0) % MCV 88.0 (80-100) fl MCH 30.7 (26-34) pg MCHC 34.9 (32-36) g/dl RDW 12.8 (11.5-14.5) % Plt Count 226 (150-375) k/mm3 MPV 9.2 (7.4-10.4) fl Immature Gran % (Auto) 0.2 (0-0.5) % Neut % (Auto) 88.0 H (45.5-73.1) % Lymph % (Auto) 5.0 L (18.3-44.2) % [place] % (Auto) 6.4 (2.6-8.5) % Eos % (Auto) 0.2 (0-4.4) % Baso % (Auto) 0.2 (0.2-1.2) % Lymph # (Auto) 0.54 L (0.9-3.2) K/mm3 [place] # (Auto) 0.7 H (0.1-0.6) K/mm3 Eos # (Auto) 0.0 (0-0.3) K/mm3 Baso # (Auto) 0.0 (0.0-0.1) K/mm3 Abs Immat Gran (auto) 0.02 (0.00-0.031) K/mm3 Absolute Neuts (auto) 9.4 H (1.3-6.7) K/mm3 Absolute Nucleated RBC 0.000 (0.0-0.012) K/mm3 Band Neutrophils % Not Reportable Nucleated RBC % 0.0 (0.0-0.2) % Platelet Estimate Adequate (Adequate) Schistocytes None seen Sodium 140 (137-145) mmol/L Potassium 4.2 (3.4-5.0) mmol/L Chloride 102 (98-107) mmol/L Carbon Dioxide 24 (22-30) mmol/L Anion Gap 14 H (4-12) mmol/L BUN 22 H (9-20) mg/dL Creatinine 0.91 (0.7-1.3) mg/dL Estim Creat Clear Calc 82 ml/min Estimated GFR > 60 (59 - ) Glucose 95 (65-110) mg/dL Calcium 9.4 (8.4-10.2) mg/dL Total Bilirubin 0.4 (0.2-1.3) mg/dL AST 22 (17-59) U/L ALT 42 (6-50) U/L Alkaline Phosphatase 63 (38-126) U/L Total Protein 8.0 (6.3-8.2) g/dL Albumin 4.9 (3.5-5.1) g/dL Urine Color Brown H (Yellow) Urine Appearance Turbid H (Clear) Urine pH 5.5 (5.0-9.0) Ur Specific [place] 1.019 (1.001-1.035) Urine Protein 2+ H (Negative) mg/dL Urine Glucose (UA) Negative (Negative) mg/dL Urine Ketones Trace H (Negative) mg/dL Ur Blood (Man) 2+ H (Negative) Urine Nitrate Positive H (Negative) Urine Bilirubin 1+ H (Negative) Urine Urobilinogen 0.2 (<2.0) mg/dL Add Ur Microanalysis Reviewed Leukocyte Esterase Rfl 3+ H (Negative) CHUCK/UL Urine RBC >100 H (0-2) /hpf Urine WBC >100 H (0-3) /hpf Ur Squamous Epith Cells Occasional (Few) /hpf Urine Bacteria 4+ H /hpf Urine Casts 0-2 <Curtis Soriano MD - Last Filed: 06/13/24 20:33> Imaging Data Radiologist's impression: ITS Impressions Abdomen/Pelvis CT 06/13/24 18:27 IMPRESSION: 1. Thickened wall of the urinary bladder. Cystitis is highly suggestive. Further evaluation advised. 2. No evidence of appendicitis, diverticulitis or intestinal obstruction. <Larry Swan MD - Last Filed: 06/13/24 18:59> Discharge Plan Discharge Clinical Impression: Cystitis <Larry Swan MD - Last Filed: 06/13/24 18:59> Patient Disposition: Still a Patient <Larry Swan MD - Last Filed: 06/13/24 18:59> Condition: Stable <Larry Swan MD - Last Filed: 06/13/24 18:59> Patient Language: Turkish <Larry Swan MD - Last Filed: 06/13/24 18:59> Prescriptions: No Action cholecalciferol (vitamin D3) 50 mcg (2,000 unit) capsule 50 mcg PO DAILY ascorbic acid (vitamin C) 1,000 mg tablet 1 g PO DAILY zinc 50 mg tablet 50 mg PO DAILY paroxetine HCl 20 mg tablet See Rx Instructions .ROUTE .COMPLEX Qty: 180 0RF Dose Instruction: TAKE 1 TABLET BY MOUTH TWICE DAILY Rx Instructions: TAKE 1 TABLET BY MOUTH TWICE DAILY ezetimibe [Zetia] 10 mg tablet 10 mg PO DAILY Qty: 90 3RF pantoprazole 40 mg tablet,delayed release (DR/EC) 40 mg PO .QAM Qty: 90 3RF rosuvastatin 40 mg tablet See Rx Instructions .ROUTE .COMPLEX Qty: 90 3RF Dose Instruction: TAKE 1 TABLET BY MOUTH DAILY Rx Instructions: TAKE 1 TABLET BY MOUTH DAILY vitamin B complex [B Complex-Vitamin B12] Tablet 1 tablet PO DAILY alprazolam 0.25 mg tablet 0.25 mg PO TID PRN (Reason: anxiety) Qty: 90 0RF <Larry Swan MD - Last Filed: 06/13/24 18:59> Follow-up/Referrals: Espinoza Mora DO [Primary Care Provider] - <Larry Swan MD - Last Filed: 06/13/24 18:59>
--- OUTSIDE RECORDS SUMMARY | 2024-06-13 18:26 | XMS_ITS | Encounter Summary ---
Author Organization [facility] Healthcare Address [address] [place] [id number] Care Team Providers Care Dump Motorman Name Role Phone Unknown, Notinfile Primary Care Provider Unavail able Reason for Visit * Reason Comments Urinary Symptom Sore Throat Encounter Details Date Type Department Care Team (Late st Contact Info) Description 06/13/2024 3:00 PM CDT Office Visit [facility] Medical Group Convenient Care at [address] [phone] Eri Phillips, SEBASTIEN [address] [facility] [address] [place] [address] Hematuria, unspecified type (Primary Dx); Sore throat; Tachycardia; Lightheadedness; Urinary frequency Social History Tobacco Use Types Packs/Day Years Used Date Smoking Tobacco: Never Assessed Sex and Gender Information Value Date Recorded Sex Assigned at Not on file Legal Sex Male 12:50 AM MILITARY ADMINISTRATIVE TECHNICIAN Gender Identity Male 03/16/2024 11:49 AM MILITARY ADMINISTRATIVE TECHNICIAN Sexual Orientation Straight 03/16/2024 11 :49 AM MILITARY ADMINISTRATIVE TECHNICIAN documented as of this encounter Last Filed [...] CDT) Influenza A Ag, POC Negative Negative [facility] Influenza B Ag, POC Negative Negative [facility] COVID-19 Ag POC Presumptive Negative Presumptive Negative, Invalid [facility] Nasal 06/13/2024 2:56 PM CDT Eri Phillips NP POINT OF CARE TEST ORDERABLES F inal Result [facility] [address] [place] [address] * (ABNORMAL) POCT urinalysis dipstick (06/13/2024 2:44 PM CDT) Color, Urine, POC Red Clarity, ur, POC Cloudy(A) Clear Glucose, ur, POC Negative Negative MG/DL Bilirubin, ur, POC Moderate Negative, Small, Moderate, Large Ketones, ur, POC 15.(A) Negative Specific [place], POC 1.025 1.003 - 1.030 Blood, ur, POC Large(A) Negative pH, ur, POC 5.5 5.0 - 8.0 Protein, ur, POC 300.(A) Negative Urobilinogen, urine, POC 1.0 0.2 - 1.0 mg/dL Nitrite, ur, POC Positive(A) Negative Leukocytes, ur, POC Large(A) Negative Lot Number [id number] Urine 06/13/2024 2:44 PM CDT Aimee Olguin [...] 05/06/2024 added in this encounter Care Teams Dump Motorman Relationship Specialty Start Date End Date Unknown, Notinfile PCP - General 06/01/23 documented as of this encounter
--- OUTSIDE RECORDS SUMMARY | 2024-06-13 18:26 | XMS_ITS | Clinical Summary ---
Author Organization [facility] Address [facility] [place] [address] Care Team Providers Care Brass Roller Name Role Phone Micheal Mccabe MD Primary Care Provider [phone] Social History Tobacco Use Types Packs/Day Years [...] patient's age to complete this topic Insurance [facility] Care Teams Brass Roller Relationship Specialty Start Date End Date Micheal Mccabe MD [address] - [facility] [address] [place] [id number] PCP - General INTERNAL MEDICINE 03/06/23
--- OUTSIDE RECORDS SUMMARY | 2024-06-13 18:26 | XMS_ITS | Clinical Summary ---
Author Organization [facility] [address] Address [address] [place] [phone] Care Team Providers Care Treasury Accountant Name Role Phone Unknown, Notinfile Primary Care [...] 03/21/2024 Assessment & Plan (03/21/2024 6:18 PM SAND TECHNICIAN): Paxil refilled with 1 refill. Patient has a new patient appointment mid April. Other hyperlipidemia 03/21/2024 Assessment & Plan (03/21/2024 6:18 PM SAND TECHNICIAN): Will refill crestor at this time. New patient appointment mid April. Encounters Date Type Department Care Team Description 06/13/2024 3:00 PM CDT Office Visit [facility] Medical Group [facility] Care at [address] [phone] Eri Phillips NP Hematuria, unspecified type (Primary Dx); Sore throat; Tachycardia; Lightheadedness; Urinary frequency 03/21/2024 6:30 PM SAND TECHNICIAN Telemedicine [facility] Medical Group Virtual Care [address] [place] [phone] Adore Coppola NP Other hyperlipidemia (Primary Dx); Moderate episode of recurrent major depressive disorder (HCC) 03/16/2024 Patient Self-Triage [facility] HealthCare/ Physicians [facility] [place] [address] Mychart, Generic Provider from Last 3 Months Social History Tobacco Use Types Packs/Day Years Used Date Smoking Tobacco: Never Assessed Sex and Gender Information Value Date Recorded Sex Assigned at Not on file Legal Sex Male 12:50 AM SAND TECHNICIAN Gender Identity Male 03/16/2024 11:49 AM SAND TECHNICIAN Sexual Orientation Straight 03/16/2024 11 :49 AM SAND TECHNICIAN Obstetrics History Last Filed Vital Signs Vital [...] CDT) Influenza A Ag, POC Negative Negative [facility] Influenza B Ag, POC Negative Negative [facility] COVID-19 Ag POC Presumptive Negative Presumptive Negative, Invalid [facility] Nasal 06/13/2024 2:56 PM CDT Eri Phillips NP POINT OF CARE TEST ORDERABLES F inal Result [facility] [address] [place] [address] * POCT rapid strep A (06/13/2024 2:56 PM CDT) Rapid Strep A, POC Negative Negative Swab 06/13/2024 2:56 PM CDT Eri Phillips ELECTRO TECH POINT OF CARE TEST ORDERABLES F inal Result * (ABNORMAL) POCT urinalysis dipstick (06/13/2024 2:44 PM CDT) Color, Urine, POC Red Clarity, ur, POC Cloudy(A) Clear Glucose, ur, POC Negative Negative MG/DL Bilirubin, ur, POC Moderate Negative, Small, Moderate, Large Ketones, ur, POC 15.(A) Negative Specific [place], POC 1.025 1.003 - 1.030 Blood, ur, POC Large(A) Negative pH, ur, POC 5.5 5.0 - 8.0 Protein, ur, POC 300.(A) Negative Urobilinogen, urine, POC 1.0 0.2 - 1.0 mg/dL Nitrite, ur, POC Positive(A) Negative Leukocytes, ur, POC Large(A) Negative Lot Number [id number] Urine 06/13/2024 2:44 PM CDT Aimee Olguin NP POINT OF CARE TEST ORDERAB LES Final Result from Last 3 Months Insurance [employer] Care Teams Treasury Accountant Relationship Specialty Start Date End Date Unknown, Notinfile PCP - General 06/01/23
--- OUTSIDE RECORDS SUMMARY | 2024-06-13 18:26 | XMS_ITS | Referral Summary ---
Author Organization [facility] [address] Address [address] [place] [phone] Care Team Providers Care Producer Assistant Name Role Phone Unknown, Notinfile Primary Care Provider Unavail able Encounters Date Type Department Care Team Description 06/13/2024 3:00 PM CDT Office Visit [facility] Convenient Care at [address] [phone] Eri Phillips NP Hematuria, unspecified type (Primary Dx); Sore throat; Tachycardia; Lightheadedness; Urinary frequency 03/21/2024 6:30 PM RESERVATIONS CLERK Telemedicine [facility] Virtual Care [address] [place] [phone] Adore Coppola NP Other hyperlipidemia (Primary Dx); Moderate episode of recurrent major depressive disorder (HCC) 03/16/2024 Patient Self-Triage [facility] HealthCare/ Physicians [facility] [place] [address] Mychart, Generic Provider from Last [...] 03/21/2024 Assessment & Plan (03/21/2024 6:18 PM RESERVATIONS CLERK): Paxil refilled with 1 refill. Patient has a new patient appointment mid April. Other hyperlipidemia 03/21/2024 Assessment & Plan (03/21/2024 6:18 PM RESERVATIONS CLERK): Will refill crestor at this time. New patient appointment mid April. Social History Tobacco Use Types Packs/Day Years Used Date Smoking Tobacco: Never Assessed Sex and Gender Information Value Date Recorded Sex Assigned at Not on file Legal Sex Male 12:50 AM RESERVATIONS CLERK Gender Identity Male 03/16/2024 11:49 AM RESERVATIONS CLERK Sexual Orientation Straight 03/16/2024 11 :49 AM RESERVATIONS CLERK Last Filed Vital Signs Vital Sign Reading [...] CDT) Influenza A Ag, POC Negative Negative [facility] Influenza B Ag, POC Negative Negative [facility] COVID-19 Ag POC Presumptive Negative Presumptive Negative, Invalid [facility] Nasal 06/13/2024 2:56 PM CDT Eri Phillips NP POINT OF CARE TEST ORDERABLES F inal Result [facility] [address] [place] [address] * POCT rapid strep A (06/13/2024 2:56 [...] Large Ketones, ur, POC 15.(A) Negative Specific [place], POC 1.025 1.003 - 1.030 Blood, ur, POC Large(A) Negative pH, ur, POC 5.5 5.0 - 8.0 Protein, ur, POC 300.(A) Negative Urobilinogen, urine, POC 1.0 0.2 - 1.0 mg/dL Nitrite, ur, POC Positive(A) Negative Leukocytes, ur, POC Large(A) Negative Lot Number [id number] Urine 06/13/2024 2:44 PM CDT Aimee Olguin NP POINT OF CARE TEST ORDERAB LES Final Result from Last 3 Months Insurance [employer] Care Teams Producer Assistant Relationship Specialty Start Date End Date Unknown, Notinfile PCP - General 06/01/23
[2024-06-13] MEDS: ONDANSETRON INJ 4 MG/2 ML VIAL IV PUSH (18:48)
[2024-06-13] MEDS: MORPHINE SULFATE (*CRX) 4 MG/ML INJ IV PUSH (18:48)
[2024-06-13] MEDS: ACETAMINOPHEN 500 MG TABLET 1000 MG PO (19:01)
--- NOTE | 2024-06-13 19:32 | PC.NURSE ---
Report received from BENSON Chappell. Assumed care of patient at this time.
[2024-06-13] MEDS: KETOROLAC 15 MG/ML VIAL (*BKC) IV PUSH (20:07)
[2024-06-13] MEDS: SODIUM CHLORIDE 0.9% IV 2,000 ML 999 ML IV CONT (20:08)
[2024-06-13] MEDS: PHENAZOPYRIDINE HCL 100 MG TABLET PO (20:52)
[2024-06-13] MEDS: IBUPROFEN IV 800 MG/200 ML 800 MG/200 ML BAG 400 MG IVPB (20:52)
--- NOTE | 2024-06-13 23:15 | ADMGEN ---
This patient, Tino Morales, was admitted to Medical Room 349-01. Patient/family oriented to hospital policies and general routines including ID bracelet, bed and alarms, visiting hours, pain management, procedures, bathroom and other care routines, personal items, smoking policy, room service/diet, and visiting hours. Information on how to activate the Rapid Response Team has been discussed. Patient/Family are encouraged to report perceived risks to care and to ask questions if they do not understand what they are told or what they should do.
[2024-06-14] VITALS (13 sets, daily range): BP systolic 90–98; BP diastolic 43–60; PULSE 88–103; RESP 16–20; TEMP 36.2–38.8; O2SAT 96–99
--- NOTE | 2024-06-14 00:03 | PM.IMHP ---
H&P: HPI History of Present Illness Date/Time: 06/13/24 23:30 Chief Complaint: Burning with urination, blood in urine Narrative: 54-year-old male with a past medical history of anxiety, hyperlipidemia and GERD who presented to the ER from urgent care due to dysuria and hematuria. The patient reported he developed dysuria 2 days ago. The next day he developed increased urinary frequency and urgency with some dribbling of urine as well as some low back pain. He then developed some hematuria today. He subsequently went to urgent care at which time he became acutely lightheaded and nauseated. At that time he spiked a fever and was directed to go to the ER. He denied any actual vomiting. He had not had any changes in bowel habits. He denies any high risk sexual activity are penile discharge. He has never had a prior UTI. He reports that his PSA which was performed last 3 weeks was normal. He does not have a history of kidney stones. CT of the abdomen pelvis without contrast performed in the ER was negative for stones but did demonstrate evidence of cystitis. Review of Systems Review of Systems: 12 systems were reviewed with pertinent positives and negatives per HPI. Except as documented in the HPI, all other systems were reviewed and are negative. [facility] Past Medical History Medical History (Updated 06/14/24 @ 01:12 by Shannan Becker DO) Hyperlipidemia Esophageal stricture Anxiety with depression Gastroesophageal reflux disease without esophagitis Impaired glucose tolerance Vitamin D deficiency Surgical History Surgical History (Updated 06/14/24 @ 00:08 by Shannan Becker DO) H/O inguinal hernia repair As a child Family History Family History Mother Family history of obesity Family history of osteoarthritis Family history of coronary artery disease Grandparent Family history of malignant neoplasm Carcinoma of colon Father Malignant neoplasm of prostate Social History Social History (Updated 06/14/24 @ 01:21 by Shannan Becker DO) Social History: The patient lives with his of 1.5 years. He has 2 sons. 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 He used to occasionally smoke tobacco when he would go out to have a drink. He usually drinks alcohol about once per week but has given it up for Lent. He denies any illicit substance use. Code status: Full code Surrogate decision maker: Smoking status: Never smoker Second hand tobacco smoke exposure: No Alcohol intake: never Drinks per week: 12 Substance use: never Substance use type: does not use Do You Feel Safe in your Home?: Yes Lack of Transportation: No Lack of Food: Never True Current Housing: I Have Housing Concerned About Future Housing: No Difficulty Paying Gas/Electric Bills: No Difficulty Paying for Meds: No Currently Unemployed: No Education: Master's Degree or Higher Difficulty w/ Childcare or Family Care: No Living arrangements: with family Occupation/Education: occupation Gender identity (if verbalized by the patient): Male Spiritual care concerns: No Meds Home Medications and Allergies Home Medications ?Medication ?Instructions ?Recorded ?Confirmed ?Type ascorbic acid (vitamin C) 1,000 mg 1 g PO DAILY 06/09/21 05/06/24 History tablet cholecalciferol (vitamin D3) 50 50 mcg PO DAILY 06/09/21 05/06/24 History mcg (2,000 unit) capsule zinc 50 mg tablet 50 mg PO DAILY 06/09/21 05/06/24 History vitamin B complex (B 1 tablet PO DAILY 07/13/22 05/06/24 History Complex-Vitamin B12 tablet) ezetimibe 10 mg tablet (Zetia) 10 mg PO DAILY #90 tabs 05/06/24 05/06/24 Rx pantoprazole 40 mg tablet,delayed 40 mg PO .QAM #90 tabs 05/06/24 05/06/24 Rx release rosuvastatin 40 mg tablet See Rx Instructions .Route 05/06/24 05/06/24 Rx .COMPLEX #90 tabs paroxetine HCl 20 mg tablet 20 mg PO DAILY 06/14/24 06/14/24 History Allergies Allergy/AdvReac Type Severity Reaction Status Date / Time No Known Allergies Allergy Verified 06/13/24 15:15 Vital Signs Vital Signs - 24 hr 06/13/24 15:16 06/13/24 16:52 06/13/24 19:00 Temperature 99.7 F H Pulse Rate 115 H 120 H 124 H Respiratory Rate 18 17 Blood Pressure 121/67 132/72 Pulse Oximetry 100 100 100 Oxygen Delivery Room Air 06/13/24 19:01 06/13/24 19:02 06/13/24 19:18 Temperature 103.0 F H Pulse Rate 128 H 128 H 122 H Respiratory Rate 18 13 Blood Pressure 126/74 126/74 Pulse Oximetry 99 100 100 Oxygen Delivery 06/13/24 19:30 06/13/24 19:31 06/13/24 19:32 Temperature Pulse Rate 117 H 119 H 116 H Respiratory Rate 12 Blood Pressure 152/54 H Pulse Oximetry 100 99 100 Oxygen Delivery 06/13/24 19:45 06/13/24 19:45 06/13/24 19:46 Temperature 103 F H Pulse Rate 123 H 128 H Respiratory Rate 13 Blood Pressure 151/83 H Pulse Oximetry 99 99 Oxygen Delivery 06/13/24 20:08 06/13/24 20:15 06/13/24 20:30 Temperature Pulse Rate 125 H 121 H 122 H Respiratory Rate 15 20 Blood Pressure Pulse Oximetry 98 97 97 Oxygen Delivery 06/13/24 20:32 06/13/24 20:35 06/13/24 20:45 Temperature 101.5 F H Pulse Rate 122 H 119 H Respiratory Rate 20 19 Blood Pressure 106/60 Pulse Oximetry 96 96 Oxygen Delivery 06/13/24 20:52 06/13/24 20:59 06/13/24 22:04 Temperature 101.5 F H 101.5 F H 100.0 F H Pulse Rate 104 H Respiratory Rate 17 Blood Pressure 99/65 L Pulse Oximetry 97 Oxygen Delivery 06/13/24 22:24 06/13/24 23:31 Temperature 100.0 F H 98.7 F Pulse Rate 105 H 101 H Respiratory Rate 17 18 Blood Pressure 99/65 L 98/49 L Pulse Oximetry 96 95 Oxygen Delivery Exam Narrative: Weight 90.8 kg BMI 20.7 Const: Other: No acute distress, well-developed well-nourished, appears stated age HENMT: Other: Mucous membranes are tacky, no oral pharyngeal erythema, head is normocephalic atraumatic Eyes: Other: Pupils are equal and reactive, no scleral icterus, mildly injected sclera Neck: Other: No JVD, no lymphadenopathy Resp: Other: Clear to auscultation bilaterally anterior jackson, no increased work of breathing Cardio: Other: Sinus tachycardia, 2+ bilateral radial pedal pulses rate in the low 100s, no murmur, 2+ bilateral radial and pedal pulses GI: Other: Soft, nontender, nondistended, positive bowel sounds Skin: Other: Warm to touch, non jaundice, no pallor Neuro: Other: Alert oriented, speech is clear, no facial asymmetry, no localizing neurologic deficits noted during the course of conversation Extrem: Other: No clubbing, cyanosis or edema Psych: Other: Appropriate mood and affect, pleasant and cooperative, judgment and insight intact H&P: Results Labs Labs: Laboratory Tests 06/13/24 16:21 06/13/24 16:21 06/13/24 16:21 WBC 10.7 H RBC 5.01 Hgb 15.4 Hct 44.1 MCV 88.0 MCH 30.7 MCHC 34.9 RDW 12.8 Plt Count 226 MPV 9.2 Immature Gran % (Auto) 0.2 Neut % (Auto) 88.0 H Lymph % (Auto) 5.0 L [place] % (Auto) 6.4 Eos % (Auto) 0.2 Baso % (Auto) 0.2 Lymph # (Auto) 0.54 L [place] # (Auto) 0.7 H Eos # (Auto) 0.0 Baso # (Auto) 0.0 Abs Immat Gran (auto) 0.02 Absolute Neuts (auto) 9.4 H Absolute Nucleated RBC 0.000 Band Neutrophils % Not Reportable Nucleated RBC % 0.0 Platelet Estimate Adequate Schistocytes None seen Sodium 140 Potassium 4.2 Chloride 102 Carbon Dioxide 24 Anion Gap 14 H BUN 22 H Creatinine 0.91 Estim Creat Clear Calc 82 Estimated GFR > 60 Glucose 95 Calcium 9.4 Total Bilirubin 0.4 AST 22 ALT 42 Alkaline Phosphatase 63 Total Protein 8.0 Albumin 4.9 Urine Color Brown H Urine Appearance Turbid H Urine pH 5.5 Ur Specific [place] 1.019 Urine Protein 2+ H Urine Glucose (UA) Negative Urine Ketones Trace H Ur Blood (Man) 2+ H Urine Nitrate Positive H Urine Bilirubin 1+ H Urine Urobilinogen 0.2 Add Ur Microanalysis Reviewed Leukocyte Esterase Rfl 3+ H Urine RBC >100 H Urine WBC >100 H Ur Squamous Epith Cells Occasional Urine Bacteria 4+ H Urine Casts 0-2 Impressions Abdomen/Pelvis CT 06/13/24 18:27 IMPRESSION: 1. Thickened wall of the urinary bladder. Cystitis is highly suggestive. Further evaluation advised. 2. No evidence of appendicitis, diverticulitis or intestinal obstruction. All imaging and telemetry personally reviewed and interpreted. And unless stated otherwise agree with radiologic and cardiology interpretation. Assessment and Plan Assessment and plan (1) UTI (urinary tract infection): Qualifiers: Urinary tract infection type: acute cystitis Hematuria presence: with hematuria Qualified Code(s): N30.01 - Acute cystitis with hematuria Code(s): N39.0 - Urinary tract infection, site not specified Status: Acute (2) SIRS (systemic inflammatory response syndrome): Code(s): R65.10 - Systemic inflammatory response syndrome (SIRS) of non-infectious origin without acute organ dysfunction Status: Acute (3) Anxiety with depression: Code(s): F41.8 - Other specified anxiety disorders Status: Acute (4) Gastroesophageal reflux disease without esophagitis: Code(s): K21.9 - Gastro-esophageal reflux disease without esophagitis Status: Acute Plan Patient has UTI with gross hematuria and meets SIRS criteria with tachycardia and fever. Blood cultures and urine cultures have been obtained and are pending. Patient been started empiric antibiotic therapy with Rocephin which will be continued. Patient did have some relative hypotension compared to baseline with systolics in the upper 90s but normal MAPS. The patient received Tylenol, IV Toradol and IV ibuprofen plus 30 mL/kilos fluid bolus with significant improvement in temperature and tachycardia. Will continue IV fluid hydration at 150 mL an hour x2 L then re-evaluate volume status. Given gross hematuria will hold off on pharmacologic DVT prophylaxis and will order SCDs. The patient has history of anxiety and states that he had not had his Paxil in 24 hours due to running out at home. He has a refill waiting at the pharmacy that he has not had a chance to pick up worker due to illness. He is requesting a dose of Paxil for tonight. His Paxil has also been ordered for morning. Will resume the patient's home GERD medications and lipid medications as well. Patient has been admitted as observation status. Quality VTE Prophylaxis VTE prophylaxis: mechanical ordered (SCDs) Hospitalist [facility] Advance Care Plan I have confirmed that the patient's Advanced Care Plan is present, code status is documented, or surrogate decision maker is listed in patient medical record.: Yes Medication Reconciliation I have utilized all available resources to obtain, update and review the patients current medications (includes all prescriptions, OTC, herbals, cannabis, and nutritional supplements).: Yes
[2024-06-14] MEDS: SODIUM CHLORIDE 0.9% IV 1,000 ML 150 ML IV CONT ×2 (00:30→10:30)
[2024-06-14] MEDS: PARoxetine 20 MG TABLET PO (00:35)
--- NOTE | 2024-06-14 08:06 | P.PNIM_ITS ---
Progress Note: A&P Assessment and Plan (1) UTI (urinary tract infection): Qualifiers: Hematuria presence: with hematuria Urinary tract infection type: acute cystitis Qualified Code(s): N30.01 - Acute cystitis with hematuria Code(s): N39.0 - Urinary tract infection, site not specified Status: Acute Assessment and Plan: - UA: Brown/Turbid, 2+ Protein, Trace ketones, Urine nitrate +, 3+ Leuk Est, >100 RBC and WBC, 4+ Bacteria - UC obtained on 06/13, showed E. Coli growth - previous micro reviewed - Continue Rocephin (2) SIRS (systemic inflammatory response syndrome): Code(s): R65.10 - Systemic inflammatory response syndrome (SIRS) of non-infectious origin without acute organ dysfunction Status: Acute Assessment and Plan: Meets SIRS criteria: In ED: HR 103, 99.7 - suspected source: Urine - blood cultures drawn on 06/13, pending - UA: Brown/Turbid, 2+ Protein, Trace ketones, Urine nitrate +, 3+ Leuk Est, >100 RBC and WBC, 4+ Bacteria - Urine culture showed E. Coli (3) Anxiety with depression: Code(s): F41.8 - Other specified anxiety disorders Status: Acute Assessment and Plan: Will resume Paxil (4) Gastroesophageal reflux disease without esophagitis: Code(s): K21.9 - Gastro-esophageal reflux disease without esophagitis Status: Acute Assessment and Plan: Resuming Protonix 40mg daily Time Spent With Patient Time: 15-25 Subjective Date/time seen: 06/14/24 08:06 Interval history: 54-year-old male with a past medical history of anxiety, hyperlipidemia and GERD who presented to the ER from urgent care due to dysuria and hematuria. The patient reported he developed dysuria 2 days ago. The next day he developed increased urinary frequency and urgency with some dribbling of urine as well as some low back pain. 06/14/2024 Patient is sitting comfortably in the bed upon examination. He is endorsing some slight nausea, but denies any chest pain, shortness of breath, vomiting, or abdominal pain. As of this morning he had not urinated but states that the last time he did, he did not experience any dysuria. He will maintain Rocephin tx for UTI. Last vitals were as follows: 97.1F, 94HR, 20 RR, 99% on RA, BP 94/60 Review of Systems Review of Systems: 12 systems were reviewed with pertinent positives and negatives per HPI. Except as documented in the HPI, all other systems were reviewed and are negative. Exam Narrative: Weight 90.8 kg BMI 28.7 Const: Other: No acute distress, well-developed well-nourished, appears stated age HENMT: Other: Mucous membranes are tacky, no oral pharyngeal erythema, head is normocephalic atraumatic Eyes: Other: Pupils are equal and reactive, no scleral icterus, mildly injected sclera Neck: Other: No JVD, no lymphadenopathy Resp: Other: Clear to auscultation bilaterally anterior jackson, no increased work of breathing Cardio: Other: Sinus tachycardia, 2+ bilateral radial pedal pulses rate in the low 100s, no murmur, 2+ bilateral radial and pedal pulses GI: Other: Soft, nontender, nondistended, positive bowel sounds Skin: Other: Warm to touch, non jaundice, no pallor Neuro: Other: Alert oriented, speech is clear, no facial asymmetry, no localizing neurologic deficits noted during the course of conversation Extrem: Other: No clubbing, cyanosis or edema Psych: Other: Appropriate mood and affect, pleasant and cooperative, judgment and insight intact Objective Data Vital Signs Vital Signs: Vital Signs - 24 hr 06/13/24 15:16 06/13/24 16:52 06/13/24 19:00 Temperature 99.7 F H Pulse Rate 115 H 120 H 124 H Respiratory Rate 18 17 Blood Pressure 121/67 132/72 Pulse Oximetry 100 100 100 Oxygen Delivery Room Air 06/13/24 19:01 06/13/24 19:02 06/13/24 19:18 Temperature 103.0 F H Pulse Rate 128 H 128 H 122 H Respiratory Rate 18 13 Blood Pressure 126/74 126/74 Pulse Oximetry 99 100 100 Oxygen Delivery 06/13/24 19:30 06/13/24 19:31 06/13/24 19:32 Temperature Pulse Rate 117 H 119 H 116 H Respiratory Rate 12 Blood Pressure 152/54 H Pulse Oximetry 100 99 100 Oxygen Delivery 06/13/24 19:45 06/13/24 19:45 06/13/24 19:46 Temperature 103 F H Pulse Rate 123 H 128 H Respiratory Rate 13 Blood Pressure 151/83 H Pulse Oximetry 99 99 Oxygen Delivery 06/13/24 20:08 06/13/24 20:15 06/13/24 20:30 Temperature Pulse Rate 125 H 121 H 122 H Respiratory Rate 15 20 Blood Pressure Pulse Oximetry 98 97 97 Oxygen Delivery 06/13/24 20:32 06/13/24 20:35 06/13/24 20:45 Temperature 101.5 F H Pulse Rate 122 H 119 H Respiratory Rate 20 19 Blood Pressure 106/60 Pulse Oximetry 96 96 Oxygen Delivery 06/13/24 20:52 06/13/24 20:59 06/13/24 22:04 Temperature 101.5 F H 101.5 F H 100.0 F H Pulse Rate 104 H Respiratory Rate 17 Blood Pressure 99/65 L Pulse Oximetry 97 Oxygen Delivery 06/13/24 22:24 06/13/24 23:31 06/14/24 00:00 Temperature 100.0 F H 98.7 F Pulse Rate 105 H 101 H 103 H Respiratory Rate 17 18 Blood Pressure 99/65 L 98/49 L Pulse Oximetry 96 95 Oxygen Delivery 06/14/24 03:30 06/14/24 04:00 Temperature 97.1 F L Pulse Rate 95 94 Respiratory Rate 20 Blood Pressure 94/60 L Pulse Oximetry 99 Oxygen Delivery Intake/Output Intake/Output: Intake & Output 06/11/24 06/12/24 06/13/24 06/14/24 23:59 23:59 23:59 23:59 Intake Total 1250 1000 Output Total 350 Balance 1250 650 Meds/Results Medications: Active Medications Generic Name Dose Route Start Last Admin Trade Name Freq PRN Reason Stop Dose Admin Acetaminophen 650 mg 06/14/24 04:16 Acetaminophen 325 Mg Tablet PO Q4H PRN Mild Pain (1-3) or Fever Ezetimibe 10 mg 06/14/24 09:00 Ezetimibe 10 Mg Tablet PO DAILY DAVID Sodium Chloride 1,000 mls @ 150 mls/hr 06/14/24 00:05 06/14/24 04:34 Normal Saline Iv IV CONT 06/14/24 13:24 150 mls/hr .[id number] DAVID Infusion Ketorolac Tromethamine 30 mg 06/14/24 04:16 Ketorolac 30 Mg/Ml Vial (*Bkc) IV PUSH Q6H PRN Pain Rated 4-10 Ondansetron HCl 4 mg 03/29/25 04:16 Ondansetron Inj 4 Mg/2 Ml Vial IV PUSH Q6H PRN Nausea And Vomiting Pantoprazole Sodium 40 mg 06/14/24 09:00 Pantoprazole 40 Mg Tablet PO DAILY [facility] Rosuvastatin Calcium 40 mg 06/14/24 09:00 Rosuvastatin 20 Mg Tablet PO DAILY [facility] Vitamin D 2,000 units 06/14/24 09:00 Cholecalciferol 1,000 Units Tablet PO DAILY [facility] Radiology Results: ITS Impressions Abdomen/Pelvis CT 06/13/24 18:27 IMPRESSION: 1. Thickened wall of the urinary bladder. Cystitis is highly suggestive. Further evaluation advised. 2. No evidence of appendicitis, diverticulitis or intestinal obstruction. Labs Labs: Laboratory Results - last 24 hr 06/13/24 16:21 WBC 10.7 H RBC 5.01 Hgb 15.4 Hct 44.1 MCV 88.0 MCH 30.7 MCHC 34.9 RDW 12.8 Plt Count 226 MPV 9.2 Immature Gran % (Auto) 0.2 Neut % (Auto) 88.0 H Lymph % (Auto) 5.0 L [place] % (Auto) 6.4 Eos % (Auto) 0.2 Baso % (Auto) 0.2 Lymph # (Auto) 0.54 L [place] # (Auto) 0.7 H Eos # (Auto) 0.0 Baso # (Auto) 0.0 Abs Immat Gran (auto) 0.02 Absolute Neuts (auto) 9.4 H Absolute Nucleated RBC 0.000 Band Neutrophils % Not Reportable Nucleated RBC % 0.0 Platelet Estimate Adequate Schistocytes None seen Sodium 140 Potassium 4.2 Chloride 102 Carbon Dioxide 24 Anion Gap 14 H BUN 22 H Creatinine 0.91 Estim Creat Clear Calc 82 Estimated GFR > 60 Glucose 95 Calcium 9.4 Total Bilirubin 0.4 AST 22 ALT 42 Alkaline Phosphatase 63 Total Protein 8.0 Albumin 4.9 Urine Color Brown H Urine Appearance Turbid H Urine pH 5.5 Ur Specific [place] 1.019 Urine Protein 2+ H Urine Glucose (UA) Negative Urine Ketones Trace H Ur Blood (Man) 2+ H Urine Nitrate Positive H Urine Bilirubin 1+ H Urine Urobilinogen 0.2 Add Ur Microanalysis Reviewed Leukocyte Esterase Rfl 3+ H Urine RBC >100 H Urine WBC >100 H Ur Squamous Epith Cells Occasional Urine Bacteria 4+ H Urine Casts 0-2 Quality VTE Prophylaxis VTE prophylaxis: mechanical ordered (SCDs)
[2024-06-14 08:35] LABS: Basophils Percent Auto 0.3 % (0.2-1.2); Hematocrit 36.2 % (42.0-52.0); Hemoglobin 12.4 g/dL (14.0-18.0); Immature Granulocyte Absolute 0.06 K/mm3 (0.00-0.031); Immature Granulocyte Percent A 0.4 % (0-0.5); Lymphocytes Absolute Auto 0.68 K/mm3 (0.9-3.2); Lymphocytes Percent Auto 4.8 % (18.3-44.2); Mean Corpuscular HGB Conc 34.3 g/dl (32-36); Mean Corpuscular Hemoglobin 30.8 pg (26-34); Mean Corpuscular Volume 89.8 fl (80-100); Mean Platelet Volume 9.4 fl (7.4-10.4); Monocytes Absolute Auto 1.2 K/mm3 (0.1-0.6); Monocytes Percent Auto 8.4 % (2.6-8.5); Neutrophils Absolute Auto 12.3 K/mm3 (1.3-6.7); Neutrophils Percent Auto 86.1 % (45.5-73.1); Platelet Count Result 172 k/mm3 (150-375); Red Blood Count 4.03 M/mm3 (4.6-6.20); Red Cell Distribution Width 13.2 % (11.5-14.5); White Blood Count 14.3 K/mm3 (4.5-10.0)
[2024-06-14 08:53] LABS: Alanine Aminotransferase 29 U/L (6-50); Albumin Level 3.5 g/dL (3.5-5.1); Alkaline Phosphatase 51 U/L (38-126); Anion Gap 10 mmol/L (4-12); Aspartate Amino Transferase 17 U/L (17-59); Bilirubin,Total 0.8 mg/dL (0.2-1.3); Blood Urea Nitrogen 15 mg/dL (9-20); Calcium 8.3 mg/dL (8.4-10.2); Carbon Dioxide 19 mmol/L (22-30); Chloride 108 mmol/L (98-107); Estimated CRCL calculation 86 ml/min; Estimated Glomerular Filt Rate > 60; Glucose 137 mg/dL (65-110); Potassium 4.2 mmol/L (3.4-5.0); Sodium 137 mmol/L (137-145)
[2024-06-14] MEDS: PANTOPRAZOLE 40 MG TABLET PO (08:53)
[2024-06-14] MEDS: EZETIMIBE 10 MG TABLET PO (08:53)
[2024-06-14] MEDS: CHOLECALCIFEROL 1,000 UNITS TABLET 2000 UNITS PO (08:53)
[2024-06-14] MEDS: PARoxetine 20 MG TABLET 40 MG PO (08:54)
[2024-06-14] MEDS: ROSUVASTATIN 20 MG TABLET 40 MG PO (08:54)
[2024-06-14] MEDS: ONDANSETRON INJ 4 MG/2 ML VIAL IV PUSH (12:21)
[2024-06-14 12:54] LABS: Lipase 49 U/L (23-300)
[2024-06-14] MEDS: DOCUSATE SODIUM 100 MG CAPSULE PO (14:29)
[2024-06-14] MEDS: ACETAMINOPHEN 325 MG TABLET 650 MG PO (20:23)
[2024-06-15] VITALS: PULSE 92
[2024-06-15] MEDS: ACETAMINOPHEN 325 MG TABLET 650 MG PO ×2 (00:47→09:40)
[2024-06-15 04:00] VITALS: PULSE 80
[2024-06-15 06:09] VITALS: BP 123/61; PULSE 88; RESP 14; TEMP 36.6; O2SAT 100
[2024-06-15 06:36] LABS: Basophils Percent Auto 0.2 % (0.2-1.2); Eosinophils Absolute Auto 0.1 K/mm3 (0-0.3); Eosinophils Percent Auto 0.6 % (0-4.4); Hematocrit 36.3 % (42.0-52.0); Immature Granulocyte Absolute 0.07 K/mm3 (0.00-0.031); Immature Granulocyte Percent A 0.7 % (0-0.5); Lymphocytes Absolute Auto 1.16 K/mm3 (0.9-3.2); Lymphocytes Percent Auto 11.1 % (18.3-44.2); Mean Corpuscular HGB Conc 33.1 g/dl (32-36); Mean Corpuscular Hemoglobin 30.3 pg (26-34); Mean Corpuscular Volume 91.7 fl (80-100); Mean Platelet Volume 9.7 fl (7.4-10.4); Monocytes Absolute Auto 0.7 K/mm3 (0.1-0.6); Monocytes Percent Auto 7.1 % (2.6-8.5); Neutrophils Absolute Auto 8.4 K/mm3 (1.3-6.7); Neutrophils Percent Auto 80.3 % (45.5-73.1); Platelet Count Result 159 k/mm3 (150-375); Red Blood Count 3.96 M/mm3 (4.6-6.20); Red Cell Distribution Width 13.2 % (11.5-14.5); White Blood Count 10.5 K/mm3 (4.5-10.0)
[2024-06-15 06:51] LABS: Alanine Aminotransferase 28 U/L (6-50); Albumin Level 3.3 g/dL (3.5-5.1); Alkaline Phosphatase 53 U/L (38-126); Anion Gap 8 mmol/L (4-12); Aspartate Amino Transferase 17 U/L (17-59); Bilirubin,Total 0.7 mg/dL (0.2-1.3); Blood Urea Nitrogen 7 mg/dL (9-20); Calcium 8.2 mg/dL (8.4-10.2); Carbon Dioxide 22 mmol/L (22-30); Chloride 108 mmol/L (98-107); Estimated CRCL calculation 87 ml/min; Estimated Glomerular Filt Rate > 60; Glucose 101 mg/dL (65-110); Potassium 3.8 mmol/L (3.4-5.0); Sodium 138 mmol/L (137-145)
[2024-06-15] MEDS: PANTOPRAZOLE 40 MG TABLET PO (09:37)
[2024-06-15] MEDS: EZETIMIBE 10 MG TABLET PO (09:37)
[2024-06-15] MEDS: PARoxetine 20 MG TABLET 40 MG PO (09:37)
[2024-06-15] MEDS: CHOLECALCIFEROL 1,000 UNITS TABLET 2000 UNITS PO (09:37)
[2024-06-15] MEDS: ROSUVASTATIN 20 MG TABLET 40 MG PO (09:37)
--- NOTE | 2024-06-15 10:11 | P.DS_ITS ---
DS: Admitting Diagnosis Discharge Date 06/15/2024 Admitting Diagnosis Cystitis DS: Discharge Diagnosis Discharge Diagnosis (1) UTI (urinary tract infection): Qualifiers: Hematuria presence: with hematuria Urinary tract infection type: acute cystitis Qualified Code(s): N30.01 - Acute cystitis with hematuria Code(s): N39.0 - Urinary tract infection, site not specified Status: Acute (2) SIRS (systemic inflammatory response syndrome): Code(s): R65.10 - Systemic inflammatory response syndrome (SIRS) of non-infectious origin without acute organ dysfunction Status: Acute (3) Anxiety with depression: Code(s): F41.8 - Other specified anxiety disorders Status: Acute (4) Gastroesophageal reflux disease without esophagitis: Code(s): K21.9 - Gastro-esophageal reflux disease without esophagitis Status: Acute DS: Summary Hospital Course Reason for hospitalization: Abdominal pain, dysuria Hospital Course: 54-year-old male with a past medical history of anxiety, hyperlipidemia and GERD who presented to the ER from urgent care due to dysuria and hematuria. The patient reported he developed dysuria 2 days ago. The next day he developed increased urinary frequency and urgency with some dribbling of urine as well as some low back pain. He then developed some hematuria today. He subsequently went to urgent care at which time he became acutely lightheaded and nauseated. At that time he spiked a fever and was directed to go to the ER. He denied any actual vomiting. He had not had any changes in bowel habits. He denies any high risk sexual activity are penile discharge. He has never had a prior UTI. He reports that his PSA which was performed last 3 weeks was normal. He does not have a history of kidney stones. CT of the abdomen pelvis without contrast performed in the ER was negative for stones but did demonstrate evidence of cystitis. On 06/14, patient endorsed subjective improvement in his symptoms. His WBC was still elevated but was improving. At that time he denied any CP, SOB, vomiting or abd pain. He was able to urinate without any complaints. He did complain to nursing staff about some intermittent abdominal pain in the evening of 06/14. Lipase and RUQ abd US was added. Lipase was wnl and abdominal US showed Indeterminate focus within segment 5/6 of the liver, which may represent an atypical hemangioma (with lack of demonstrable vascularity), however, nonemergent follow-up with contrast-enhanced MRI of the liver. I spoke with the patient regarding these results and instructed him to follow up closely with his PCP regarding possible followup imaging. His symptoms, as of the AM of 06/15 continued to improve. Patient was otherwise stable with a still decreased WBC and was able to be discharged on PO antibiotics for UTI with close followup management with his PCP. Pt agreeable to this and will plan for DC. Time Spent with Patient Time attestation: Total time spent providing and/or coordinating discharge services:45 Exam Narrative: Weight 90.8 kg BMI 28.7 Const: Other: No acute distress, well-developed well-nourished, appears stated age HENMT: Other: Mucous membranes are tacky, no oral pharyngeal erythema, head is normocephalic atraumatic Eyes: Other: Pupils are equal and reactive, no scleral icterus, mildly injected sclera Neck: Other: No JVD, no lymphadenopathy Resp: Other: Clear to auscultation bilaterally anterior jackson, no increased work of breathing Cardio: Other: Regular rate no murmur, 2+ bilateral radial and pedal pulses GI: Other: Soft, nontender, nondistended, positive bowel sounds Skin: Other: Warm to touch, non jaundice, no pallor Neuro: Other: Alert oriented, speech is clear, no facial asymmetry, no localizing neurologic deficits noted during the course of conversation Extrem: Other: No clubbing, cyanosis or edema Psych: Other: Appropriate mood and affect, pleasant and cooperative, judgment and insight intact DS: Data Data Completed and Pending Labs on day of discharge: Labs from last 24 hours 06/15/24 06/14/24 06:04 08:29 WBC 10.5 H RBC 3.96 L Hgb 12.0 L Hct 36.3 L MCV 91.7 MCH 30.3 MCHC 33.1 RDW 13.2 Plt Count 159 MPV 9.7 Immature Gran % (Auto) 0.7 H Neut % (Auto) 80.3 H Lymph % (Auto) 11.1 L Bracken % (Auto) 7.1 Eos % (Auto) 0.6 Baso % (Auto) 0.2 Lymph # (Auto) 1.16 Bracken # (Auto) 0.7 H Eos # (Auto) 0.1 Baso # (Auto) 0.0 Abs Immat Gran (auto) 0.07 H Absolute Neuts (auto) 8.4 H Absolute Nucleated RBC 0.000 Nucleated RBC % 0.0 Sodium 138 Potassium 3.8 Chloride 108 H Carbon Dioxide 22 Anion Gap 8 BUN 7 L D Creatinine 0.86 Estim Creat Clear Calc 87 Estimated GFR > 60 Glucose 101 Calcium 8.2 L Total Bilirubin 0.7 AST 17 ALT 28 Alkaline Phosphatase 53 Total Protein 6.0 L Albumin 3.3 L Lipase 49 Preliminary micro results at discharge 06/13/24 20:00 Blood Culture - Preliminary Blood 06/13/24 19:59 Blood Culture - Preliminary Blood 06/13/24 16:21 Urine Culture - Preliminary Urine Clean Catch Escherichia Coli Discharge Plan Discharge Attending physician on discharge: Jerrod Porter Discharging Clinician: Jerrod Porter Anticipated Discharge Date/Time: 06/15/24 10:01 Patient Disposition: Home, Self-Care Activity: as tolerated Diet: as tolerated Discharge Instructions: Take all medications as prescribed even if feeling better. You will be prescribed a 7 day course of Nitrofurantoin. Take one dose in the morning and one at night. Eat well balanced meals and stay hydrated Keep active to remain strong If you should experience any chest pain, shortness of breath, temps >100.4 or any other worrisome symptoms please follow up with your PCP come back to the hospital Follow up with your primary as soon as possible regarding your visit. It has been a pleasure taking care of you thank you for using our services Patient Instructions: Antibiotic Form Patient Language: Macedonian Stand Alone Forms: General Discharge Information Follow-up/Referrals: Espinoza Mora DO [Primary Care Provider] - Discharge Medications: New nitrofurantoin macrocrystal 100 mg capsule 100 mg PO Q12H 7 Days Qty: 14 0RF Rx Instructions: must administer with a meal/food Continued cholecalciferol (vitamin D3) 50 mcg (2,000 unit) capsule 50 mcg PO DAILY ascorbic acid (vitamin C) 1,000 mg tablet 1 g PO DAILY zinc 50 mg tablet 50 mg PO DAILY ezetimibe [Zetia] 10 mg tablet 10 mg PO DAILY Qty: 90 3RF pantoprazole 40 mg tablet,delayed release (DR/EC) 40 mg PO .QAM Qty: 90 3RF rosuvastatin 40 mg tablet See Rx Instructions .ROUTE .COMPLEX Qty: 90 3RF Dose Instruction: TAKE 1 TABLET BY MOUTH DAILY Rx Instructions: TAKE 1 TABLET BY MOUTH DAILY vitamin B complex [B Complex-Vitamin B12] Tablet 1 tablet PO DAILY paroxetine HCl 20 mg tablet 40 mg PO DAILY Date of admission: 06/13/24 20:29 Primary Care Provider: Espinoza Mora Admitting Provider: Shannan Becker Attending physician on admission: Jerrod Porter Condition: Stable Quality VTE Prophylaxis VTE prophylaxis: mechanical ordered (SCDs)
== END 2024-06-15 12:00 | disposition home or self-care (01) ==
LOC: ANHED 20:33 → ANH3MED 21:51
PROVIDERS: Student in an Organized Health Care Education/Training Program; Admitting Provider Internal Medicine; Emergency Provider Family Medicine; PCP Internal Medicine; Visit Provider Physician Assistant
DX: N30.01 Acute cystitis with hematuria (principal); B96.20 Unspecified Escherichia coli [E. coli] as the cause of diseases classified elsewhere; F41.8 Other specified anxiety disorders; K21.9 Gastro-esophageal reflux disease without esophagitis; E78.5 Hyperlipidemia, unspecified; Z79.899 Other long term (current) drug therapy
CPT/HCPCS: 36415; 74176; 76705; 80053; 81001; 83690; 85025; 87040; 87086; 87186; 96361; 96365; 96367; 96374; 96375; 99285; A9270; G0378; J0696; J1741; J1885; J2270; J2405; J7030